=== PATIENT | male | born 1980 | race African-American/Black ===

== ENCOUNTER 2017-04-07 17:08 | Inpatient (IN) | payer OTHER ==
[~2017-04-07] VITALS: Ht 180.3 cm; Wt 76.7 kg
[2017-04-07] MEDS ORDERED: PHEN100C4 PO (17:16)
[2017-04-07] MEDS ORDERED: METO-396 PO (17:16)
[2017-04-07] MEDS ORDERED: FURO-152 PO (17:16)
[2017-04-07] MEDS ORDERED: KEPP500 PO (17:16)
[2017-04-07] MEDS ORDERED: POTA10CA42 PO (17:16)
[2017-04-07] MEDS ORDERED: LORAZEPAM 2MG/ML CPJ ONE (17:22)
[2017-04-07] MEDS ORDERED: SODIUM CHLORIDE 0.9% 1,000 ML IV ONE (17:34)
[2017-04-07] MEDS ORDERED: LEVETIRACETAM 500MG PREMIX 100 ML IV ONE (17:45)
[2017-04-07] MEDS ORDERED: LORAZEPAM 2MG/ML CPJ IV ONE (17:45)
[2017-04-07] MEDS ORDERED: FOLIC ACID 1 MG, THIAMINE HCL 100 MG, MVI, ADULT NO.1 10 ML in DEXTROSE 5% WATER 1,000 ML IV ONE ×4 (17:45)
[2017-04-07 18:06] LABS: INR 1.2; PROTHROMBIN TIME 12.8 sec (9.4-11.6)
[2017-04-07 18:07] LABS: BASOPHILS % 1.2 % (0.0-2.0); EOSINOPHILS % 1.5 % (0.0-5.0); HEMATOCRIT. 31.9 % (42.0-52.0); HEMOGLOBIN. 10.3 g/dL (14.0-18.0); LYMPHOCYTES % 26.1 % (20.0-50.0); MEAN CORPUSCULAR HEMOGLOBIN 29.8 pg (28.0-32.0); MEAN PLATELET VOLUME 8.7 fl (7.4-10.4); MONOCYTES % 9.9 % (2.0-8.0); NEUTROPHILS % 61.3 % (40.0-76.0); PLATELET 80 x1000/uL (130-400); RED BLOOD CELL COUNT 3.47 mill/uL (4.7-6.1); RED CELL DISTRIBUTION WIDTH 15.7 % (11.6-14.6)
[2017-04-07 18:12] LABS: CARBON DIOXIDE 20 mEq/L (21-32); CHLORIDE 95 mEq/L (98-107); ETHANOL BLOOD < 10 mg/dL
[2017-04-07 18:14] LABS: CREATINE KINASE 135 IU/L (39-308); TROPONIN I < 0.02 ng/mL (0.00-0.04)
[2017-04-07 18:16] LABS: CARBAMAZEPINE < 0.5 ug/mL (4-12); PHENOBARBITAL < 2.1 ug/mL (15.0-40.0)
[2017-04-07] MEDS ORDERED: ONDANSETRON HCL 4MG/2ML VIAL IV PRN (21:45)
[2017-04-07] MEDS ORDERED: DEXT 5%/0.45% NACL KCL 20MEQ/L 1,000 ML IV SCH (21:45)
[2017-04-07] MEDS ORDERED: MAGNESIUM/ALUMINUM HYDROXIDE/SIMETHICONE 30ML UDC PO PRN (21:45)
[2017-04-07 21:52] LABS: CLARITY URINE CLEAR (CLEAR); COLOR URINE YELLOW (YELLOW); GLUCOSE URINE 2+ (NEGATIVE); KETONES URINE TRACE (NEGATIVE); LEUKOCYTE ESTERASE URINE NEGATIVE (NEGATIVE); NITRITE URINE NEGATIVE (NEGATIVE); OCCULT BLOOD URINE 3+ (NEGATIVE); PROTEIN URINE TRACE (NEGATIVE); SPECIFIC GRAVITY URINE 1.017 (1.005-1.030)
[2017-04-07 22:03] LABS: *AMPHETAMINES SCREEN URINE NEGATIVE (NEGATIVE); *BARBITURATES SCREEN URINE NEGATIVE (NEGATIVE); *BENZODIAZEPINES SCREEN URINE NEGATIVE (NEGATIVE); *COCAINE SCREEN URINE NEGATIVE (NEGATIVE); CANNABINOID URINE SCREEN NEGATIVE (NEGATIVE); METHADONE URINE SCREEN NEGATIVE (NEGATIVE); OPIATES URINE SCREEN NEGATIVE (NEGATIVE); PHENCYCLIDINE URINE SCREEN NEGATIVE (NEGATIVE)
[2017-04-08] VITALS (24 sets, daily range): BP systolic 72–161; BP diastolic 35–114
[2017-04-08] MEDS ORDERED: THIA500T PO (03:33)
[2017-04-08] MEDS ORDERED: MULT-1146 PO (03:33)
[2017-04-08] MEDS ORDERED: CALC-1042 PO (03:33)
[2017-04-08] MEDS ORDERED: FOLI-43 PO (03:33)
[2017-04-08] MEDS ORDERED: OMEP20TA15 PO (03:33)
[2017-04-08] MEDS ORDERED: HYDR-523 PO (03:33)
[2017-04-08] MEDS: SODIUM CHLORIDE 0.9% 1,000 ML IV SCH ×2 (04:51→19:03)
[2017-04-08] MEDS: ACETAMINOPHEN 325MG TABLET PO PRN (05:59)
[2017-04-08] MEDS ORDERED: LEVETIRACETAM 500 MG in SODIUM CHLORIDE 0.9% 100 ML IV SCH (06:00)
[2017-04-08 07:31] LABS: BASOPHILS % 0.4 % (0.0-2.0); EOSINOPHILS % 0.1 % (0.0-5.0); HEMATOCRIT. 30.8 % (42.0-52.0); HEMOGLOBIN. 10.3 g/dL (14.0-18.0); LYMPHOCYTES % 10.2 % (20.0-50.0); MEAN CORPUSCULAR HEMOGLOBIN 30.3 pg (28.0-32.0); MEAN CORPUSCULAR VOLUME 90.2 fL (80.0-94.0); MEAN PLATELET VOLUME 9.4 fl (7.4-10.4); MONOCYTES % 7.3 % (2.0-8.0); PLATELET 75 x1000/uL (130-400); RED BLOOD CELL COUNT 3.41 mill/uL (4.7-6.1); RED CELL DISTRIBUTION WIDTH 15.5 % (11.6-14.6)
[2017-04-08 07:37] LABS: CARBON DIOXIDE 29 mEq/L (21-32); CHLORIDE 92 mEq/L (98-107)
[2017-04-08] MEDS: THIAMINE HCL 100 MG in SODIUM CHLORIDE 0.9% 49 ML IV SCH (08:21)
[2017-04-08] MEDS ORDERED: MAGNESIUM 4 G PREMIX 100 ML IV SCH (09:00)
[2017-04-08] MEDS ORDERED: MVI, ADULT NO.1 10 ML, FOLIC ACID 1 MG, THIAMINE HCL 100 MG in SODIUM CHLORIDE 0.9% 1,0... IV NR ×4 (10:00)
[2017-04-08] MEDS ORDERED: SUCCINYLCHOLINE CHLORIDE 200MG/10ML VIAL IV ONE (11:00)
[2017-04-08] MEDS ORDERED: ETOMIDATE 2MG/ML 10ML VIAL IV ONE (11:00)
[2017-04-08] MEDS ORDERED: EPINEPHRINE 0.1MG/ML (1:10,000) 10ML SYR ONE (11:00)
[2017-04-08] MEDS ORDERED: LIDOCAINE HCL 1% 20ML VIAL (Pyxis) INJ ONE (11:28)
[2017-04-08] MEDS ORDERED: SODIUM BICARBONATE 4% (2.4MEQ) 5ML VIAL IV ONE (11:28)
[2017-04-08] MEDS: LORAZEPAM 2MG/ML CPJ IV PRN ×2 (12:53→20:46)
[2017-04-08] MEDS: DIPHENHYDRAMINE 50MG/ML VIAL IV PRN ×2 (13:05→13:34)
[2017-04-08] MEDS: PROPOFOL 10MG/ML 100ML 100 ML IV SCH ×3 (13:08→22:07)
[2017-04-08] MEDS ORDERED: POTASSIUM CHLORIDE INJ 40 MEQ in DEXT 5% WATER 250 ML IV NR (13:30)
[2017-04-08 13:58] LABS: BG CARBOXYHEMOGLOBIN 0.3 % (0.5-1.5); BG DEOXYHEMOGLOBIN 1.6 % (0.0-5.0); BG FRACTION INSPIRED OXYGEN 100; BG HCO3 ACT 21.5 mmol/L (22.0-26.0); BG METHEMOGLOBIN 0.4 % (0.0-1.5); BG OXYGEN SATURATION 98.4 % (92.0-98.5); BG OXYHEMOGLOBIN 97.7 % (94.0-97.0); BG PCO2 32.6 mmHg (35.0-45.0); BG PH 7.438 (7.350-7.450); BG SAMPLE SITE LEFT RADIAL; BG TIDAL VOLUME(mL) 500 mL; BG TOTAL HEMOGLOBIN 10.8 g/dL (12.0-18.0); BG VENT MODE VENT - A/C; BG VENT RATE 12 set
[2017-04-08] MEDS ORDERED: SODIUM CHLORIDE 0.9% 250 ML IV ONE (14:00)
[2017-04-08] MEDS ORDERED: LORAZEPAM 2MG/ML CPJ IV PRN (16:45)
[2017-04-08] MEDS: LEVETIRACETAM 500 MG in SODIUM CHLORIDE 0.9% 100 ML IV SCH (18:50)
[2017-04-08] MEDS: CEFTRIAXONE 1 G PREMIX 50 ML IV SCH (18:50)
[2017-04-08 19:31] LABS: CARBON DIOXIDE 26 mEq/L (21-32); CHLORIDE 99 mEq/L (98-107)
[2017-04-08 20:04] LABS: TROPONIN I 0.75 ng/mL (0.00-0.04)
[2017-04-08] MEDS: PANTOPRAZOLE SODIUM 40 MG/VIAL IV SCH (21:11)
[2017-04-08 21:56] LABS: HEMOGLOBIN 7.7 g/dL (14.0-18.0); MEAN CORPUSCULAR HEMOGLOBIN 30.8 pg (28.0-32.0); MEAN CORPUSCULAR VOLUME 91.9 fL (80.0-94.0); PLATELET 53 x1000/uL (130-400); RED CELL DISTRIBUTION WIDTH 15.9 % (11.6-14.6)
[2017-04-09] VITALS (71 sets, daily range): BP systolic 86–175; BP diastolic 58–104
[2017-04-09] MEDS: PROPOFOL 10MG/ML 100ML 100 ML IV SCH ×2 (02:32→07:55)
[2017-04-09 06:48] LABS: CARBON DIOXIDE 22 mEq/L (21-32); CHLORIDE 93 mEq/L (98-107); PHOSPHORUS 1.5 mg/dL (2.5-4.9); TROPONIN I 0.31 ng/mL (0.00-0.04)
[2017-04-09] MEDS: LEVETIRACETAM 500 MG in SODIUM CHLORIDE 0.9% 100 ML IV SCH ×2 (06:51→18:24)
[2017-04-09] MEDS: SODIUM CHLORIDE 0.9% 1,000 ML IV SCH ×2 (06:51→22:26)
[2017-04-09 08:37] LABS: BG BASE EXCESS 0.3 mmol/L (-2.0-2.0); BG CARBOXYHEMOGLOBIN 0.4 % (0.5-1.5); BG DEOXYHEMOGLOBIN 0.5 % (0.0-5.0); BG FRACTION INSPIRED OXYGEN 80; BG HCO3 ACT 22.5 mmol/L (22.0-26.0); BG METHEMOGLOBIN 0.6 % (0.0-1.5); BG OXYGEN SATURATION 99.5 % (92.0-98.5); BG OXYHEMOGLOBIN 98.5 % (94.0-97.0); BG PH 7.538 (7.350-7.450); BG PO2 277.5 mmHg (75.0-100.0); BG SAMPLE SITE RIGHT RADIAL; BG TIDAL VOLUME(mL) 500 mL; BG TOTAL HEMOGLOBIN 8.4 g/dL (12.0-18.0); BG VENT MODE VENT - A/C; BG VENT RATE 12 set
[2017-04-09 09:07] LABS: HEMATOCRIT. 21.6 % (42.0-52.0); MEAN CORPUSCULAR VOLUME 90.4 fL (80.0-94.0); MEAN PLATELET VOLUME 10.7 fl (7.4-10.4); RED BLOOD CELL COUNT 2.39 mill/uL (4.7-6.1); RED CELL DISTRIBUTION WIDTH 16.3 % (11.6-14.6)
[2017-04-09 09:08] LABS: MEAN CORPUSCULAR HEMOGLOBIN 29.3 pg (28.0-32.0)
[2017-04-09 09:11] LABS: PLATELET 50 x1000/uL (130-400)
[2017-04-09] MEDS: PANTOPRAZOLE SODIUM 40 MG/VIAL IV SCH ×2 (09:27→20:53)
[2017-04-09 09:50] LABS: PLATELET ESTIMATE MARKEDLY DECREASED
[2017-04-09] MEDS ORDERED: POTASSIUM PHOS M BASIC D BASIC IV SCH (10:00)
[2017-04-09] MEDS ORDERED: WATER IV SCH (10:00)
[2017-04-09] MEDS ORDERED: MAGNESIUM 2 G PREMIX 50 ML IV SCH (10:00)
[2017-04-09] MEDS ORDERED: POTASSIUM CHLORIDE INJ 40 MEQ in DEXT 5% WATER 250 ML IV SCH (10:00)
[2017-04-09] MEDS ORDERED: DEXT 5% IV SCH (10:00)
[2017-04-09] MEDS: THIAMINE HCL 100 MG in SODIUM CHLORIDE 0.9% 49 ML IV SCH (10:21)
[2017-04-09] MEDS: MIDAZOLAM HCL 50 MG in DEXTROSE 5% WATER 40 ML IV PRN ×2 (11:55→17:05)
[2017-04-09] MEDS ORDERED: FENTANYL CITRATE/PF 500 MCG in SODIUM CHLORIDE 0.9% 40 ML IV PRN (12:45)
[2017-04-09] MEDS ORDERED: MORPHINE SULFATE 4 MG/ML CPJ (NOT FOR IM USE) IV PRN (13:30)
[2017-04-09] MEDS: CEFTRIAXONE 1 G PREMIX 50 ML IV SCH (18:15)
[2017-04-09] MEDS: MIDAZOLAM HCL 100 MG in DEXT 5% WATER 80 ML IV PRN (20:39)
[2017-04-09 23:31] LABS: HEMATOCRIT 32.6 % (42.0-52.0); HEMOGLOBIN 10.4 g/dL (14.0-18.0); MEAN CORPUSCULAR HEMOGLOBIN 28.8 pg (28.0-32.0); MEAN CORPUSCULAR VOLUME 90.4 fL (80.0-94.0); PLATELET 52 x1000/uL (130-400); RED BLOOD CELL COUNT 3.61 mill/uL (4.7-6.1); RED CELL DISTRIBUTION WIDTH 16.4 % (11.6-14.6)
[2017-04-10] VITALS (65 sets, daily range): BP systolic 94–151; BP diastolic 65–110
[2017-04-10] MEDS: MORPHINE SULFATE 4 MG/ML CPJ (NOT FOR IM USE) IV PRN ×4 (00:42→22:47)
[2017-04-10] MEDS: MIDAZOLAM HCL 100 MG in DEXT 5% WATER 80 ML IV PRN ×2 (05:10→13:46)
[2017-04-10] MEDS: LEVETIRACETAM 500 MG in SODIUM CHLORIDE 0.9% 100 ML IV SCH ×2 (05:26→17:25)
[2017-04-10 06:14] LABS: INR 1.1; PARTIAL THROMBOPLASTIN TIME 30.5 sec (23.4-31.0); PROTHROMBIN TIME 11.3 sec (9.4-11.6)
[2017-04-10 07:36] LABS: BG BASE EXCESS -2.1 mmol/L (-2.0-2.0); BG CARBOXYHEMOGLOBIN 0.3 % (0.5-1.5); BG DEOXYHEMOGLOBIN 4.4 % (0.0-5.0); BG HCO3 ACT 21.1 mmol/L (22.0-26.0); BG METHEMOGLOBIN 0.1 % (0.0-1.5); BG OXYGEN SATURATION 95.6 % (92.0-98.5); BG OXYHEMOGLOBIN 95.2 % (94.0-97.0); BG PCO2 30.6 mmHg (35.0-45.0); BG PH 7.457 (7.350-7.450); BG PO2 79.5 mmHg (75.0-100.0); BG SAMPLE SITE RIGHT BRACHIAL; BG TIDAL VOLUME(mL) 500 mL; BG TOTAL HEMOGLOBIN 9.9 g/dL (12.0-18.0); BG VENT MODE VENT - A/C; BG VENT RATE 12 set
[2017-04-10] MEDS: PANTOPRAZOLE SODIUM 40 MG/VIAL IV SCH ×2 (08:10→21:26)
[2017-04-10] MEDS ORDERED: FENTANYL CITRATE/PF 500 MCG in SODIUM CHLORIDE 0.9% 40 ML IV PRN (08:30)
[2017-04-10 08:54] LABS: BASOPHILS % 0.3 % (0.0-2.0); EOSINOPHILS % 1.4 % (0.0-5.0); HEMATOCRIT. 25.9 % (42.0-52.0); HEMOGLOBIN. 8.9 g/dL (14.0-18.0); LYMPHOCYTES % 10.4 % (20.0-50.0); MEAN CORPUSCULAR HEMOGLOBIN 30.6 pg (28.0-32.0); MEAN CORPUSCULAR VOLUME 89.3 fL (80.0-94.0); MEAN PLATELET VOLUME 10.6 fl (7.4-10.4); NEUTROPHILS % 80.9 % (40.0-76.0); PLATELET 61 x1000/uL (130-400); RED CELL DISTRIBUTION WIDTH 16.4 % (11.6-14.6)
[2017-04-10 08:57] LABS: CARBON DIOXIDE 24 mEq/L (21-32); CHLORIDE 104 mEq/L (98-107); PHOSPHORUS 2.7 mg/dL (2.5-4.9)
[2017-04-10] MEDS: FOLIC ACID 1 MG, THIAMINE HCL 100 MG, MVI, ADULT NO.1 10 ML in DEXT 5%/0.9% NACL 1,000 ML IV SCH ×4 (10:03)
[2017-04-10 15:09] LABS: BG BASE EXCESS -0.3 mmol/L (-2.0-2.0); BG CARBOXYHEMOGLOBIN 0.1 % (0.5-1.5); BG CPAP (cmH2O) 0 cm(H2O); BG DEOXYHEMOGLOBIN 2.2 % (0.0-5.0); BG HCO3 ACT 23.2 mmol/L (22.0-26.0); BG OXYGEN SATURATION 97.8 % (92.0-98.5); BG OXYHEMOGLOBIN 97.7 % (94.0-97.0); BG PCO2 33.4 mmHg (35.0-45.0); BG PH 7.459 (7.350-7.450); BG PO2 112.3 mmHg (75.0-100.0); BG SAMPLE SITE RIGHT RADIAL; BG TOTAL HEMOGLOBIN 9.9 g/dL (12.0-18.0); BG VENT MODE MASK - CPAP
[2017-04-10] MEDS ORDERED: MAGNESIUM 2 G PREMIX 50 ML IV SCH (17:00)
[2017-04-10] MEDS ORDERED: POTASSIUM CHLORIDE INJ 40 MEQ in DEXT 5% WATER 250 ML IV SCH (17:30)
[2017-04-10] MEDS: DEXT 5%/0.9% NACL 1,000 ML IV SCH (18:12)
[2017-04-10] MEDS: CEFTRIAXONE 1 G PREMIX 50 ML IV SCH (18:12)
[2017-04-11] VITALS (68 sets, daily range): BP systolic 119–170; BP diastolic 54–111
[2017-04-11] MEDS: DEXT 5%/0.9% NACL 1,000 ML IV SCH ×3 (04:38→22:44)
[2017-04-11] MEDS: LEVETIRACETAM 500 MG in SODIUM CHLORIDE 0.9% 100 ML IV SCH ×2 (05:11→18:08)
[2017-04-11 05:52] LABS: HEMATOCRIT. 30.3 % (42.0-52.0); HEMOGLOBIN. 10.2 g/dL (14.0-18.0); MEAN CORPUSCULAR VOLUME 91.8 fL (80.0-94.0); RED CELL DISTRIBUTION WIDTH 16.7 % (11.6-14.6)
[2017-04-11 08:46] LABS: BG BASE EXCESS 0.1 mmol/L (-2.0-2.0); BG CARBOXYHEMOGLOBIN 0.1 % (0.5-1.5); BG DEOXYHEMOGLOBIN 3.5 % (0.0-5.0); BG FRACTION INSPIRED OXYGEN 32; BG HCO3 ACT 24.3 mmol/L (22.0-26.0); BG METHEMOGLOBIN 0.3 % (0.0-1.5); BG OXYGEN SATURATION 96.5 % (92.0-98.5); BG OXYHEMOGLOBIN 96.1 % (94.0-97.0); BG PCO2 37.7 mmHg (35.0-45.0); BG PH 7.428 (7.350-7.450); BG PO2 88.8 mmHg (75.0-100.0); BG SAMPLE SITE LEFT RADIAL; BG VENT MODE NASAL CANNULA
[2017-04-11] MEDS: MORPHINE SULFATE 4 MG/ML CPJ (NOT FOR IM USE) IV PRN ×4 (09:11→21:47)
[2017-04-11] MEDS: PANTOPRAZOLE SODIUM 40 MG/VIAL IV SCH ×2 (09:11→21:19)
[2017-04-11] MEDS: FOLIC ACID 1 MG, THIAMINE HCL 100 MG, MVI, ADULT NO.1 10 ML in DEXT 5%/0.9% NACL 1,000 ML IV SCH ×4 (10:26)
[2017-04-11] MEDS ORDERED: MAGNESIUM 2 G PREMIX 50 ML IV SCH (12:00)
[2017-04-11] MEDS ORDERED: POTASSIUM CHLORIDE INJ 40 MEQ in DEXT 5% WATER 250 ML IV SCH (12:00)
[2017-04-11] MEDS ORDERED: SIMETHICONE 40 MG/0.6 ML 30ML ONE (12:42)
[2017-04-11] MEDS ORDERED: SODIUM CHLORIDE 0.9% 10ML VIAL ONE (12:42)
[2017-04-11 14:01] LABS: PLATELET 86 x1000/uL (130-400)
[2017-04-11] MEDS: CEFTRIAXONE 1 G PREMIX 50 ML IV SCH (18:18)
[2017-04-11] MEDS ORDERED: FENTANYL CITRATE/PF 50MCG/ML 2ML VIAL ONE (18:21)
[2017-04-11] MEDS ORDERED: DIPHENHYDRAMINE 50MG/ML VIAL ONE (18:21)
[2017-04-11] MEDS ORDERED: MIDAZOLAM HCL 5 MG/5 ML VIAL ONE (18:22)
[2017-04-11 20:34] LABS: CHLORIDE 107 mEq/L (98-107)
[2017-04-11 20:39] LABS: CARBON DIOXIDE 27 mEq/L (21-32)
[2017-04-11] MEDS: SUCRALFATE 1 G/10 ML UDC PO SCH (21:19)
[2017-04-11] MEDS ORDERED: MAGNESIUM 2 G PREMIX 50 ML IV NR (22:30)
[2017-04-12] VITALS (47 sets, daily range): BP systolic 123–168; BP diastolic 82–112
[2017-04-12] MEDS: LEVETIRACETAM 500 MG in SODIUM CHLORIDE 0.9% 100 ML IV SCH ×2 (05:25→18:30)
[2017-04-12] MEDS: MORPHINE SULFATE 4 MG/ML CPJ (NOT FOR IM USE) IV PRN ×4 (05:47→20:20)
[2017-04-12] MEDS: SUCRALFATE 1 G/10 ML UDC PO SCH ×4 (05:47→20:20)
[2017-04-12 07:03] LABS: CARBON DIOXIDE 25 mEq/L (21-32); CHLORIDE 102 mEq/L (98-107); PHOSPHORUS 1.7 mg/dL (2.5-4.9)
[2017-04-12] MEDS: DEXT 5%/0.9% NACL 1,000 ML IV SCH (09:23)
[2017-04-12 09:43] LABS: HEMATOCRIT. 26.6 % (42.0-52.0); HEMOGLOBIN. 9.1 g/dL (14.0-18.0); MEAN CORPUSCULAR HEMOGLOBIN 30.8 pg (28.0-32.0); MEAN PLATELET VOLUME 8.5 fl (7.4-10.4); PLATELET 136 x1000/uL (130-400); RED BLOOD CELL COUNT 2.96 mill/uL (4.7-6.1)
[2017-04-12] MEDS ORDERED: METOPROLOL TARTRATE 50MG TABLET PO SCH (10:00)
[2017-04-12] MEDS ORDERED: POTASSIUM CHLORIDE 20MEQ TABLET SR PO SCH (10:20)
[2017-04-12] MEDS ORDERED: POTASSIUM PHOS,M-BASIC-D-BASIC 15 MMOL in DEXT 5% WATER 245 ML IV NR (11:30)
[2017-04-12] MEDS ORDERED: MAGNESIUM 2 G PREMIX 50 ML IV NR (11:30)
[2017-04-12] MEDS: THIAMINE HCL 100MG TABLET PO SCH (12:32)
[2017-04-12] MEDS: MULTIVITAMINS,THER W-MINERALS TABLET PO SCH (12:32)
[2017-04-12] MEDS: PANTOPRAZOLE SODIUM 40 MG/VIAL IV SCH ×2 (12:32→20:21)
[2017-04-12] MEDS: CLONIDINE 0.1MG TABLET PO PRN ×2 (12:33→21:54)
[2017-04-12] MEDS: CHLORDIAZEPOXIDE 5 MG CAPSULE PO SCH ×2 (15:01→22:19)
[2017-04-12 16:14] LABS: PLATELET ESTIMATE NORMAL
[2017-04-12] MEDS: CEFTRIAXONE 1 G PREMIX 50 ML IV SCH (18:30)
[2017-04-12] MEDS: METOPROLOL TARTRATE 100MG TABLET PO SCH (20:42)
[2017-04-13] VITALS: BP 142/89
[2017-04-13] MEDS: MORPHINE SULFATE 4 MG/ML CPJ (NOT FOR IM USE) IV PRN ×5 (00:55→22:33)
[2017-04-13 04:00] VITALS: BP 133/90
[2017-04-13] MEDS: LEVETIRACETAM 500 MG in SODIUM CHLORIDE 0.9% 100 ML IV SCH ×2 (05:41→18:37)
[2017-04-13] MEDS: CHLORDIAZEPOXIDE 5 MG CAPSULE PO SCH ×3 (05:41→22:25)
[2017-04-13] MEDS: SUCRALFATE 1 G/10 ML UDC PO SCH ×4 (05:41→20:20)
[2017-04-13 06:47] LABS: HEMATOCRIT. 24.1 % (42.0-52.0); HEMOGLOBIN. 8.1 g/dL (14.0-18.0); MEAN CORPUSCULAR HEMOGLOBIN 30.5 pg (28.0-32.0); MEAN CORPUSCULAR VOLUME 90.7 fL (80.0-94.0); MEAN PLATELET VOLUME 8.6 fl (7.4-10.4); PLATELET 171 x1000/uL (130-400); RED BLOOD CELL COUNT 2.65 mill/uL (4.7-6.1)
[2017-04-13] MEDS: ACETAMINOPHEN 325MG TABLET PO PRN (06:53)
[2017-04-13 07:53] LABS: CARBON DIOXIDE 28 mEq/L (21-32); CHLORIDE 98 mEq/L (98-107); PHOSPHORUS 2.8 mg/dL (2.5-4.9)
[2017-04-13 08:00] VITALS: BP 122/93
[2017-04-13] MEDS: THIAMINE HCL 100MG TABLET PO SCH (08:36)
[2017-04-13] MEDS: FOLIC ACID 1MG TABLET PO SCH (08:36)
[2017-04-13] MEDS: MULTIVITAMINS,THER W-MINERALS TABLET PO SCH (08:36)
[2017-04-13] MEDS: METOPROLOL TARTRATE 100MG TABLET PO SCH ×2 (08:37→20:20)
[2017-04-13] MEDS: PANTOPRAZOLE SODIUM 40 MG/VIAL IV SCH ×2 (08:37→20:20)
[2017-04-13 12:21] VITALS: BP 119/83
[2017-04-13] MEDS ORDERED: POTASSIUM CHLORIDE 20MEQ TABLET SR PO SCH ×3 (12:30→22:30)
[2017-04-13] MEDS ORDERED: MAGNESIUM 4 G PREMIX 100 ML IV SCH (14:00)
[2017-04-13 16:00] VITALS: BP 132/93
[2017-04-13 16:11] LABS: ATYPICAL LYMPHOCYTES 1
[2017-04-13 16:14] LABS: PLATELET ESTIMATE NORMAL
[2017-04-13 20:00] VITALS: BP 157/102
[2017-04-13] MEDS: CEFTRIAXONE 1 G PREMIX 50 ML IV SCH (20:20)
[2017-04-14] VITALS: BP 143/93
[2017-04-14] MEDS: MORPHINE SULFATE 4 MG/ML CPJ (NOT FOR IM USE) IV PRN (02:56)
[2017-04-14 04:00] VITALS: BP 142/96
[2017-04-14] MEDS: ACETAMINOPHEN 325MG TABLET PO PRN (04:27)
[2017-04-14] MEDS: CHLORDIAZEPOXIDE 5 MG CAPSULE PO SCH ×3 (05:27→21:35)
[2017-04-14] MEDS: SUCRALFATE 1 G/10 ML UDC PO SCH ×4 (06:12→21:34)
[2017-04-14 07:11] LABS: HEMATOCRIT 24.8 % (42.0-52.0); HEMOGLOBIN 8.4 g/dL (14.0-18.0); MEAN CORPUSCULAR HEMOGLOBIN 30.8 pg (28.0-32.0); PLATELET 234 x1000/uL (130-400); RED BLOOD CELL COUNT 2.73 mill/uL (4.7-6.1)
[2017-04-14 08:00] VITALS: BP 146/85
[2017-04-14] MEDS: LEVETIRACETAM 500MG/5ML CUP PO SCH ×2 (09:27→21:34)
[2017-04-14] MEDS: FOLIC ACID 1MG TABLET PO SCH (09:28)
[2017-04-14] MEDS: METOPROLOL TARTRATE 100MG TABLET PO SCH ×2 (09:28→21:35)
[2017-04-14] MEDS: THIAMINE HCL 100MG TABLET PO SCH (09:28)
[2017-04-14] MEDS: MULTIVITAMINS,THER W-MINERALS TABLET PO SCH (09:28)
[2017-04-14] MEDS: PANTOPRAZOLE SODIUM 40 MG/VIAL IV SCH ×2 (10:36→21:34)
[2017-04-14] MEDS ORDERED: TRAMADOL 50MG TABLET PO PRN (11:00)
[2017-04-14 12:00] VITALS: BP 153/103
[2017-04-14] MEDS ORDERED: MAGNESIUM 4 G PREMIX 100 ML IV NR (12:30)
[2017-04-14 16:00] VITALS: BP 143/95
[2017-04-14 16:53] LABS: AMMONIA 49 uMol/L (<32)
[2017-04-14] MEDS: CEFTRIAXONE 1 G PREMIX 50 ML IV SCH (18:04)
[2017-04-14 20:00] VITALS: BP 151/100
[2017-04-14] MEDS: HYDROCODONE/ACETAMINOPHEN 5/325MG TABLET PO PRN (21:36)
[2017-04-15] VITALS: BP 130/84
[2017-04-15] MEDS: HYDROCODONE/ACETAMINOPHEN 5/325MG TABLET PO PRN ×4 (01:28→20:03)
[2017-04-15 04:00] VITALS: BP 101/66
[2017-04-15] MEDS: CHLORDIAZEPOXIDE 5 MG CAPSULE PO SCH ×3 (06:07→21:58)
[2017-04-15] MEDS: SUCRALFATE 1 G/10 ML UDC PO SCH ×4 (06:08→20:51)
[2017-04-15 08:00] VITALS: BP 124/88
[2017-04-15] MEDS: THIAMINE HCL 100MG TABLET PO SCH (09:06)
[2017-04-15] MEDS: MULTIVITAMINS,THER W-MINERALS TABLET PO SCH (09:06)
[2017-04-15] MEDS: FOLIC ACID 1MG TABLET PO SCH (09:06)
[2017-04-15] MEDS: LEVETIRACETAM 500MG/5ML CUP PO SCH ×2 (09:07→20:51)
[2017-04-15] MEDS: PANTOPRAZOLE SODIUM 40 MG/VIAL IV SCH ×2 (09:07→20:50)
[2017-04-15] MEDS: METOPROLOL TARTRATE 100MG TABLET PO SCH ×2 (09:07→20:51)
[2017-04-15] MEDS ORDERED: POTASSIUM CHLORIDE 20MEQ TABLET SR PO NR ×2 (09:45→13:45)
[2017-04-15] MEDS: MAGNESIUM 4 G PREMIX 100 ML IV SCH ×2 (11:11→16:25)
[2017-04-15 12:00] VITALS: BP 127/84
[2017-04-15 16:00] VITALS: BP 142/98
[2017-04-15] MEDS: CEFTRIAXONE 1 G PREMIX 50 ML IV SCH (18:35)
[2017-04-15 20:00] VITALS: BP 141/102
[2017-04-16] VITALS: BP 139/104
[2017-04-16 04:00] VITALS: BP 151/100
[2017-04-16] MEDS: CHLORDIAZEPOXIDE 5 MG CAPSULE PO SCH ×2 (05:17→14:02)
[2017-04-16] MEDS: CLONIDINE 0.1MG TABLET PO PRN ×2 (05:42→19:34)
[2017-04-16] MEDS: SUCRALFATE 1 G/10 ML UDC PO SCH ×4 (06:27→21:27)
[2017-04-16 08:00] VITALS: BP 147/97
[2017-04-16] MEDS: LEVETIRACETAM 500MG/5ML CUP PO SCH ×2 (08:22→21:27)
[2017-04-16] MEDS: MULTIVITAMINS,THER W-MINERALS TABLET PO SCH (08:22)
[2017-04-16] MEDS: THIAMINE HCL 100MG TABLET PO SCH (08:22)
[2017-04-16] MEDS: FOLIC ACID 1MG TABLET PO SCH (08:22)
[2017-04-16] MEDS: PANTOPRAZOLE SODIUM 40 MG/VIAL IV SCH ×2 (08:23→21:27)
[2017-04-16] MEDS: METOPROLOL TARTRATE 100MG TABLET PO SCH ×2 (08:23→21:27)
[2017-04-16] MEDS: HYDROCODONE/ACETAMINOPHEN 5/325MG TABLET PO PRN (08:24)
[2017-04-16 12:00] VITALS: BP 157/103
[2017-04-16 12:32] LABS: AMMONIA 53 uMol/L (<32)
[2017-04-16] MEDS ORDERED: POTASSIUM CHLORIDE 20MEQ TABLET SR PO NR (15:00)
[2017-04-16 16:00] VITALS: BP 141/92
[2017-04-16] MEDS ORDERED: MAGNESIUM 4 G PREMIX 100 ML IV ONE (16:00)
[2017-04-16] MEDS: LACTULOSE 20G/30ML UDC PO SCH (16:34)
[2017-04-16] MEDS: AMLODIPINE 2.5MG TABLET PO SCH (17:59)
[2017-04-16] MEDS: CEFTRIAXONE 1 G PREMIX 50 ML IV SCH (18:11)
[2017-04-16 19:20] LABS: T4 FREE 1.61 ng/dL (0.76-1.46)
[2017-04-16 20:00] VITALS: BP 157/100
[2017-04-17] VITALS (7 sets, daily range): BP systolic 132–166; BP diastolic 86–107
[2017-04-17] MEDS: HYDROCODONE/ACETAMINOPHEN 5/325MG TABLET PO PRN ×2 (05:27→22:04)
[2017-04-17 07:48] LABS: AMMONIA 31 uMol/L (<32)
[2017-04-17 08:03] LABS: HEMATOCRIT. 25.1 % (42.0-52.0); HEMOGLOBIN. 8.5 g/dL (14.0-18.0); MEAN CORPUSCULAR HEMOGLOBIN 30.7 pg (28.0-32.0); MEAN CORPUSCULAR VOLUME 91.3 fL (80.0-94.0); MEAN PLATELET VOLUME 8.2 fl (7.4-10.4); PLATELET 401 x1000/uL (130-400); RED BLOOD CELL COUNT 2.75 mill/uL (4.7-6.1); RED CELL DISTRIBUTION WIDTH 16.7 % (11.6-14.6)
[2017-04-17 08:22] LABS: CARBON DIOXIDE 30 mEq/L (21-32); CHLORIDE 102 mEq/L (98-107)
[2017-04-17] MEDS: LACTULOSE 20G/30ML UDC PO SCH ×2 (08:22→16:50)
[2017-04-17] MEDS: PANTOPRAZOLE SODIUM 40 MG/VIAL IV SCH ×2 (08:22→22:04)
[2017-04-17] MEDS: LEVETIRACETAM 500MG/5ML CUP PO SCH ×2 (08:22→22:02)
[2017-04-17] MEDS: MULTIVITAMINS,THER W-MINERALS TABLET PO SCH (08:22)
[2017-04-17] MEDS: SUCRALFATE 1 G/10 ML UDC PO SCH ×4 (08:22→22:02)
[2017-04-17] MEDS: METOPROLOL TARTRATE 100MG TABLET PO SCH ×2 (08:23→22:03)
[2017-04-17] MEDS: AMLODIPINE 2.5MG TABLET PO SCH (08:23)
[2017-04-17] MEDS: THIAMINE HCL 100MG TABLET PO SCH (08:23)
[2017-04-17] MEDS: FOLIC ACID 1MG TABLET PO SCH (08:23)
[2017-04-17] MEDS ORDERED: CHLORDIAZEPOXIDE 5 MG CAPSULE PO SCH (09:00)
[2017-04-17 16:20] LABS: PLATELET ESTIMATE SLIGHTLY INCREASED
[2017-04-17] MEDS: CEFTRIAXONE 1 G PREMIX 50 ML IV SCH (16:50)
[2017-04-17] MEDS ORDERED: AMLODIPINE 2.5MG TABLET PO NR (17:45)
[2017-04-18] VITALS: BP 138/87
[2017-04-18] MEDS: HYDROCODONE/ACETAMINOPHEN 5/325MG TABLET PO PRN ×2 (02:20→08:02)
[2017-04-18 04:00] VITALS: BP 129/85
[2017-04-18] MEDS: SUCRALFATE 1 G/10 ML UDC PO SCH (06:44)
[2017-04-18] MEDS: THIAMINE HCL 100MG TABLET PO SCH (08:01)
[2017-04-18] MEDS: MULTIVITAMINS,THER W-MINERALS TABLET PO SCH (08:01)
[2017-04-18] MEDS: LEVETIRACETAM 500MG/5ML CUP PO SCH (08:01)
[2017-04-18] MEDS: FOLIC ACID 1MG TABLET PO SCH (08:01)
[2017-04-18] MEDS: LACTULOSE 20G/30ML UDC PO SCH (08:01)
[2017-04-18] MEDS: PANTOPRAZOLE SODIUM 40 MG/VIAL IV SCH (08:01)
[2017-04-18] MEDS: METOPROLOL TARTRATE 100MG TABLET PO SCH (08:02)
[2017-04-18 08:38] VITALS: BP 127/86
[2017-04-18] MEDS ORDERED: AMLODIPINE 5MG TABLET PO SCH (09:00)
== END 2017-04-18 09:03 | disposition home or self-care (01) | DRG 720 ==
LOC: ER 17:26 → 6WST 20:13 → EDBEDREQTM 20:18 → EDBEDREQ 20:18 → ENRESERV 04-08 00:53 → MICUNO 04-08 12:38 → 8WST 04-12 22:40
PROVIDERS: ADMIT Internal Medicine; ATTEND Internal Medicine
PROC: 5A1945Z Respiratory Ventilation, 24-96 Consecutive Hours (ICD-10-PCS; 2017-04-07)
PROC: 05HY33Z Insertion of Infusion Device into Upper Vein, Percutaneous Approach (ICD-10-PCS; 2017-04-08)
PROC: 30233N1 Transfusion of Nonautologous Red Blood Cells into Peripheral Vein, Percutaneous Approach (ICD-10-PCS; 2017-04-09)
PROC: 0BH17EZ Insertion of Endotracheal Airway into Trachea, Via Natural or Artificial Opening (ICD-10-PCS; 2017-04-10)
PROC: 0T9B70Z Drainage of Bladder with Drainage Device, Via Natural or Artificial Opening (ICD-10-PCS; 2017-04-10)
PROC: 0DB68ZX Excision of Stomach, Via Natural or Artificial Opening Endoscopic, Diagnostic (ICD-10-PCS; principal; 2017-04-11 15:00)
DX: A41.9 Sepsis, unspecified organism (principal); J96.00 Acute respiratory failure, unspecified whether with hypoxia or hypercapnia; I46.9 Cardiac arrest, cause unspecified; J69.0 Pneumonitis due to inhalation of food and vomit; G93.40 Encephalopathy, unspecified; K25.4 Chronic or unspecified gastric ulcer with hemorrhage; D61.818 Other pancytopenia; E87.2 Acidosis; K29.71 Gastritis, unspecified, with bleeding; I50.9 Heart failure, unspecified; F10.239 Alcohol dependence with withdrawal, unspecified; K86.1 Other chronic pancreatitis; G40.901 Epilepsy, unspecified, not intractable, with status epilepticus; E87.1 Hypo-osmolality and hyponatremia; E83.42 Hypomagnesemia; E83.39 Other disorders of phosphorus metabolism; E11.9 Type 2 diabetes mellitus without complications; E78.1 Pure hyperglyceridemia; E86.0 Dehydration; E87.6 Hypokalemia; F17.200 Nicotine dependence, unspecified, uncomplicated; K70.9 Alcoholic liver disease, unspecified; D62 Acute posthemorrhagic anemia; I11.0 Hypertensive heart disease with heart failure; K44.9 Diaphragmatic hernia without obstruction or gangrene; R74.0 Nonspecific elevation of levels of transaminase and lactic acid dehydrogenase [LDH]; D69.6 Thrombocytopenia, unspecified; R33.9 Retention of urine, unspecified; K70.30 Alcoholic cirrhosis of liver without ascites; K76.0 Fatty (change of) liver, not elsewhere classified; Z91.018 Allergy to other foods; Z88.8 Allergy status to other drugs, medicaments and biological substances; Z99.3 Dependence on wheelchair; Z83.3 Family history of diabetes mellitus; Z82.49 Family history of ischemic heart disease and other diseases of the circulatory system; Z91.14 Patient's other noncompliance with medication regimen; Z79.899 Other long term (current) drug therapy
CPT/HCPCS: 31500; 36415; 36569; 36600; 70450; 71010; 72100; 73060; 76700; 76937; 77001; 80048; 80051; 80053; 80076; 80156; 80165; 80184; 80185; 80305; 81001; 82140; 82150; 82248; 82375; 82550; 82805; 82962; 83605; 83690; 83735; 83880; 84100; 84439; 84443; 84478; 84484; 85025; 85027; 85610; 85730; 86850; 86900; 86920; 87070; 88305; 93005; 93306; 94002; 94003; 96365; 96366; 96367; 96375; 97116; 97162; 97167; 99285; A4216; A6261; C1725; C1893; C9113; G0482; J0171; J0330; J0696; J1200; J1642; J1953; J2060; J2250; J2270; J2405; J2704; J3010; J3411; J3475; J3480; J3490; J7030; J7042; J7050; J7060; J7070; P9016; A4315

== ENCOUNTER 2020-04-18 23:31 | Emergency (ER) | payer MEDICAID, OTHER ==
[~2020-04-18] VITALS: Ht 182.9 cm; Wt 77.0 kg
[~2020-04-18 23:31] MED LIST: CALC-1042 PO; FOLI-43 PO; FURO-152 PO; HYDR-523 PO; KEPP500 PO; METO-396 PO; MULT-1146 PO; OMEP20TA15 PO; PHEN100C4 PO; POTA10CA42 PO; THIA500T PO
[2020-04-19] MEDS ORDERED: HYDROCODONE/ACETAMINOPHEN 5/325MG TABLET PO ONE (03:45)
[2020-04-19 04:52] VITALS: BP 122/75
== END 2020-04-19 06:08 | disposition home or self-care (01) ==
LOC: ER 23:31
DX: M79.671 Pain in right foot (principal); Z87.828 Personal history of other (healed) physical injury and trauma; Z88.6 Allergy status to analgesic agent; Z91.018 Allergy to other foods
CPT/HCPCS: 73590; 73600; 73620; 93005; 99284; Z7610

== ENCOUNTER 2022-05-08 17:02 | Emergency (ER) | payer MEDICAID, OTHER ==
[~2022-05-08] VITALS: Ht 185.4 cm; Wt 68.0 kg
[~2022-05-08 17:02] MED LIST changes: +HYDR-4001 MT; -HYDR-523 PO; +L25 PO; +LORA-249 MT
[2022-05-08] MEDS ORDERED: LEVETIRACETAM 1000MG PREMIX 100 ML IV ONE (17:30)
[2022-05-08 18:53] LABS: BASOPHILS % 0.4 % (0.0-2.0); EOSINOPHILS % 0.9 % (0.0-5.0); HEMOGLOBIN. 11.1 g/dL (14.0-18.0); LYMPHOCYTES % 18.3 % (20.0-50.0); MEAN CORPUSCULAR HEMOGLOBIN 29.2 pg (28.0-32.0); MEAN CORPUSCULAR VOLUME 86.8 fL (80.0-94.0); MEAN PLATELET VOLUME 8.3 fl (7.4-10.4); MONOCYTES % 11.8 % (2.0-8.0); NEUTROPHILS % 68.6 % (40.0-76.0); PLATELET 210 x1000/uL (130-400); RED CELL DISTRIBUTION WIDTH 14.4 % (11.6-14.6)
[2022-05-08 18:59] LABS: CHLORIDE 91 mEq/L (98-107)
[2022-05-08 19:09] LABS: ETHANOL BLOOD < 10 mg/dL
[2022-05-08] MEDS ORDERED: POTASSIUM CHLORIDE 20MEQ TABLET SR PO ONE (20:00)
[2022-05-08] MEDS ORDERED: MAGNESIUM OXIDE 400MG TABLET PO SCH (20:00)
[2022-05-08 20:07] VITALS: BP 129/84
== END 2022-05-08 21:27 | disposition home or self-care (01) ==
LOC: ER 17:02
DX: G40.909 Epilepsy, unspecified, not intractable, without status epilepticus (principal); E87.6 Hypokalemia; F41.9 Anxiety disorder, unspecified; I50.9 Heart failure, unspecified; K76.9 Liver disease, unspecified; F17.210 Nicotine dependence, cigarettes, uncomplicated; Z86.73 Personal history of transient ischemic attack (TIA), and cerebral infarction without residual deficits; F10.10 Alcohol abuse, uncomplicated; Y90.0 Blood alcohol level of less than 20 mg/100 ml; Z87.828 Personal history of other (healed) physical injury and trauma; Z91.018 Allergy to other foods; Z88.8 Allergy status to other drugs, medicaments and biological substances
CPT/HCPCS: 36415; 70450; 80053; 80320; 82962; 83690; 85025; 93005; 96365; 96366; 99285; J1953; G0480

== ENCOUNTER 2022-05-30 05:44 | Emergency (ER) | payer MEDICAID ==
[~2022-05-30] VITALS: Ht 180.3 cm; Wt 69.0 kg
[2022-05-30] MEDS ORDERED: LEVETIRACETAM 500MG/5ML CUP PO NR (06:45)
[2022-05-30 06:59] LABS: BASOPHILS % 1.3 % (0.0-2.0); EOSINOPHILS % 5.4 % (0.0-5.0); HEMATOCRIT. 31.9 % (42.0-52.0); HEMOGLOBIN. 10.7 g/dL (14.0-18.0); LYMPHOCYTES % 29.7 % (20.0-50.0); MEAN CORPUSCULAR HEMOGLOBIN 29.3 pg (28.0-32.0); MEAN CORPUSCULAR VOLUME 87.3 fL (80.0-94.0); MEAN PLATELET VOLUME 7.9 fl (7.4-10.4); MONOCYTES % 10.8 % (2.0-8.0); NEUTROPHILS % 52.8 % (40.0-76.0); PLATELET 284 x1000/uL (130-400); RED BLOOD CELL COUNT 3.66 mill/uL (4.7-6.1); RED CELL DISTRIBUTION WIDTH 14.6 % (11.6-14.6)
[2022-05-30 07:10] LABS: CHLORIDE 102 mEq/L (98-107)
[2022-05-30 07:15] LABS: CLARITY URINE CLEAR (CLEAR); COLOR URINE YELLOW (YELLOW); KETONES URINE NEGATIVE (NEGATIVE); LEUKOCYTE ESTERASE URINE NEGATIVE (NEGATIVE); NITRITE URINE NEGATIVE (NEGATIVE); OCCULT BLOOD URINE NEGATIVE (NEGATIVE); PROTEIN URINE NEGATIVE (NEGATIVE); SPECIFIC GRAVITY URINE 1.025 (1.005-1.030); UROBILINOGEN URINE 0.2 E.U./dL (0.2-1.0)
[2022-05-30 07:20] LABS: CREATINE KINASE 99 IU/L (39-308); ETHANOL BLOOD < 10 mg/dL
[2022-05-30 07:35] LABS: BG BASE EXCESS -1.3 mmol/L (-2.0-2.0); BG CARBOXYHEMOGLOBIN 0.9 % (0.5-1.5); BG DEOXYHEMOGLOBIN 2.8 % (0.0-5.0); BG HCO3 ACT 23.4 mmol/L (22.0-26.0); BG METHEMOGLOBIN 0.2 % (0.0-1.5); BG OXYGEN SATURATION 97.2 % (92.0-98.5); BG OXYHEMOGLOBIN 96.1 % (94.0-97.0); BG PCO2 39.4 mmHg (35.0-45.0); BG PH 7.392 (7.350-7.450); BG PO2 94.6 mmHg (75.0-100.0); BG SAMPLE SITE RIGHT RADIAL; BG TOTAL HEMOGLOBIN 10.6 g/dL (12.0-18.0); BG VENT MODE ROOM AIR
[2022-05-30] MEDS ORDERED: HYDROCODONE/ACETAMINOPHEN 5/325MG TABLET PO ONE (08:45)
[2022-05-30 09:35] LABS: *AMPHETAMINES SCREEN URINE NEGATIVE (NEGATIVE); *BARBITURATES SCREEN URINE NEGATIVE (NEGATIVE); *BENZODIAZEPINES SCREEN URINE NEGATIVE (NEGATIVE); *COCAINE SCREEN URINE NEGATIVE (NEGATIVE); CANNABINOID URINE SCREEN NEGATIVE (NEGATIVE); METHADONE URINE SCREEN NEGATIVE (NEGATIVE); OPIATES URINE SCREEN NEGATIVE (NEGATIVE); PHENCYCLIDINE URINE SCREEN NEGATIVE (NEGATIVE)
[2022-05-30 10:40] VITALS: BP 126/98
== END 2022-05-30 11:00 | disposition home or self-care (01) ==
LOC: ER 05:44
DX: R56.9 Unspecified convulsions (principal); D64.9 Anemia, unspecified; I50.9 Heart failure, unspecified; Z91.018 Allergy to other foods; Z98.890 Other specified postprocedural states; Z79.899 Other long term (current) drug therapy; Z86.73 Personal history of transient ischemic attack (TIA), and cerebral infarction without residual deficits
CPT/HCPCS: 36415; 36600; 71045; 80053; 80305; 80320; 81003; 82140; 82375; 82550; 82805; 83605; 83880; 84484; 85025; 93005; 99285; G0480

== ENCOUNTER 2022-10-19 18:29 | Inpatient (IN) | payer MEDICAID, OTHER ==
[~2022-10-19] VITALS: Ht 180.3 cm; Wt 70.8 kg
[~2022-10-19 18:29] MED LIST changes: -CALC-1042 PO; -HYDR-4001 MT; -LORA-249 MT; -POTA10CA42 PO; +POTA10CA43 PO; -THIA500T PO
[2022-10-19] MEDS ORDERED: INSULIN REGULAR (HUMULIN R) UD 100 UNITS/ML SYR SUBCUT ONE ×2 (19:00)
[2022-10-19] MEDS ORDERED: LEVETIRACETAM 500MG PREMIX 100 ML IV ONE (19:00)
[2022-10-19 19:14] LABS: EOSINOPHILS % 1.9 % (0.0-5.0); HEMATOCRIT. 39.2 % (42.0-52.0); HEMOGLOBIN. 13.3 g/dL (14.0-18.0); LYMPHOCYTES % 27.6 % (20.0-50.0); MEAN CORPUSCULAR VOLUME 82.5 fL (80.0-94.0); MEAN PLATELET VOLUME 8.8 fl (7.4-10.4); MONOCYTES % 8.8 % (2.0-8.0); NEUTROPHILS % 60.7 % (40.0-76.0); PLATELET 307 x1000/uL (130-400); RED BLOOD CELL COUNT 4.75 mill/uL (4.7-6.1)
[2022-10-19 19:19] LABS: CHLORIDE 100 mEq/L (98-107)
[2022-10-19 19:29] LABS: BETA HYDROXYBUTYRATE 0.9 mMol/L (0.0-0.3); ETHANOL BLOOD < 10 mg/dL
[2022-10-19] MEDS ORDERED: INSULIN REGULAR (HUMULIN R) 300UNITS/3ML VIAL SUBCUT NR (19:30)
[2022-10-19] MEDS ORDERED: PHENYTOIN SODIUM 1,000 MG in SODIUM CHLORIDE 0.9% 100 ML IV ONE (20:45)
[2022-10-19] MEDS ORDERED: LORAZEPAM 2MG/ML CPJ IV ONE (21:00)
[2022-10-20] VITALS (7 sets, daily range): BP systolic 107–117; BP diastolic 61–82
[2022-10-20] MEDS ORDERED: PHENYTOIN SODIUM 1,000 MG in SODIUM CHLORIDE 0.9% 100 ML IV NR (01:40)
[2022-10-20] MEDS ORDERED: DEXTROSE 50% WATER 50ML SYRINGE IV PRN (02:30)
[2022-10-20] MEDS ORDERED: HYDROCODONE/ACETAMINOPHEN 10/325MG TABLET PO PRN (02:30)
[2022-10-20] MEDS ORDERED: LORAZEPAM 2MG/ML CPJ IV PRN (02:30)
[2022-10-20] MEDS ORDERED: ZOLPIDEM TARTRATE 5MG TABLET PO PRN (02:30)
[2022-10-20] MEDS: BLOOD SUGAR DIAGNOSTIC STRIP TEST SCH ×5 (02:41→21:13)
[2022-10-20] MEDS ORDERED: NALOXONE HCL 0.4MG/ML VIAL IV PRN (03:00)
[2022-10-20] MEDS: INSULIN LISPRO 100 UNITS/ML SUBCUT SCH ×5 (03:02→21:14)
[2022-10-20 03:46] LABS: BASOPHILS % 0.6 % (0.0-2.0); EOSINOPHILS % 0.8 % (0.0-5.0); HEMATOCRIT. 35.7 % (42.0-52.0); HEMOGLOBIN. 12.2 g/dL (14.0-18.0); LYMPHOCYTES % 16.8 % (20.0-50.0); MEAN CORPUSCULAR HEMOGLOBIN 27.8 pg (28.0-32.0); MEAN CORPUSCULAR VOLUME 81.3 fL (80.0-94.0); MEAN PLATELET VOLUME 9.2 fl (7.4-10.4); MONOCYTES % 9.8 % (2.0-8.0); PLATELET 289 x1000/uL (130-400); RED BLOOD CELL COUNT 4.39 mill/uL (4.7-6.1); RED CELL DISTRIBUTION WIDTH 12.9 % (11.6-14.6)
[2022-10-20] MEDS ORDERED: PHENYTOIN SODIUM EXTENDED 100MG CAPSULE PO NR (04:30)
[2022-10-20 05:00] LABS: CHLORIDE 95 mEq/L (98-107)
[2022-10-20] MEDS: LEVETIRACETAM 500MG TABLET PO SCH ×2 (08:35→21:12)
[2022-10-20] MEDS: MULTIVITAMINS,THER W-MINERALS TABLET PO SCH (08:35)
[2022-10-20] MEDS: FOLIC ACID 1MG TABLET PO SCH (08:35)
[2022-10-20] MEDS: METFORMIN HCL 500MG TABLET PO SCH ×2 (08:36→18:30)
[2022-10-20] MEDS: ENOXAPARIN 40MG/0.4ML SYR SUBCUT SCH (08:36)
[2022-10-20] MEDS: AMLODIPINE 10MG TABLET PO SCH (09:00)
[2022-10-20] MEDS ORDERED: METOPROLOL SUCCINATE 50MG ER TABLET PO SCH (09:00)
[2022-10-20] MEDS ORDERED: LIDOCAINE HCL 1% 30ML VIAL (10MG/ML) ONE (09:20)
[2022-10-20] MEDS ORDERED: PHENYTOIN SODIUM EXTENDED 100MG CAPSULE PO SCH (21:00)
[2022-10-20] MEDS ORDERED: INSULIN GLARGINE 100 UNITS/ML SUBCUT SCH (22:00)
[2022-10-21] VITALS: BP 131/61
[2022-10-21 04:00] VITALS: BP 101/73
[2022-10-21] MEDS: BLOOD SUGAR DIAGNOSTIC STRIP TEST SCH ×3 (06:01→16:37)
[2022-10-21] MEDS: INSULIN LISPRO 100 UNITS/ML SUBCUT SCH ×5 (06:32→16:39)
[2022-10-21] MEDS: METFORMIN HCL 500MG TABLET PO SCH (07:10)
[2022-10-21 08:00] VITALS: BP 110/70
[2022-10-21] MEDS ORDERED: LANTUSUD SUBCUT ×2 (08:37)
[2022-10-21] MEDS ORDERED: INSU100I28 SQ (08:39)
[2022-10-21] MEDS: MULTIVITAMINS,THER W-MINERALS TABLET PO SCH (09:07)
[2022-10-21] MEDS: FOLIC ACID 1MG TABLET PO SCH (09:07)
[2022-10-21] MEDS: LEVETIRACETAM 500MG TABLET PO SCH (09:07)
[2022-10-21] MEDS: ENOXAPARIN 40MG/0.4ML SYR SUBCUT SCH (09:08)
[2022-10-21] MEDS: AMLODIPINE 10MG TABLET PO SCH (09:08)
[2022-10-21 10:29] VITALS: BP 110/70
[2022-10-21 12:00] VITALS: BP 115/72
[2022-10-21 16:00] VITALS: BP 102/69
== END 2022-10-21 17:38 | disposition home or self-care (01) | DRG 53 ==
LOC: ER 18:29 → 7EST 22:46 → EDBEDREQ 23:20 → EDBEDREQTM 23:20
PROVIDERS: ADMIT Internal Medicine; ATTEND Internal Medicine
PROC: B54MZZA Ultrasonography of Right Upper Extremity Veins, Guidance (ICD-10-PCS; principal; 2022-10-20)
PROC: 05HY33Z Insertion of Infusion Device into Upper Vein, Percutaneous Approach (ICD-10-PCS; 2022-10-20)
DX: G40.909 Epilepsy, unspecified, not intractable, without status epilepticus (principal); I50.9 Heart failure, unspecified; E87.1 Hypo-osmolality and hyponatremia; E11.65 Type 2 diabetes mellitus with hyperglycemia; Z88.0 Allergy status to penicillin; Z88.5 Allergy status to narcotic agent; Z88.6 Allergy status to analgesic agent; Z79.4 Long term (current) use of insulin; Z91.14 Patient's other noncompliance with medication regimen; Z86.73 Personal history of transient ischemic attack (TIA), and cerebral infarction without residual deficits
CPT/HCPCS: 36415; 36573; 71045; 80048; 80053; 80185; 80320; 82010; 82962; 83036; 84484; 85025; 93005; 99285; C1725; C1769; C1893; J1165; J1650; J1815; J1953; J3490; J7050; G0480

== ENCOUNTER 2022-10-26 23:28 | Inpatient (IN) | payer MEDICAID ==
[~2022-10-26] VITALS: Ht 180.3 cm; Wt 75.3 kg
[~2022-10-26 23:28] MED LIST changes: +INSU100I28 SQ
[2022-10-27] MEDS ORDERED: SODIUM CHLORIDE 0.9% 1,000 ML IV ONE ×2 (01:15→03:00)
[2022-10-27] MEDS ORDERED: LEVETIRACETAM 1000MG PREMIX 100 ML IV ONE (01:15)
[2022-10-27 01:29] LABS: CLARITY URINE CLEAR (CLEAR); COLOR URINE YELLOW (YELLOW); KETONES URINE NEGATIVE (NEGATIVE); LEUKOCYTE ESTERASE URINE NEGATIVE (NEGATIVE); NITRITE URINE NEGATIVE (NEGATIVE); OCCULT BLOOD URINE NEGATIVE (NEGATIVE); PH URINE 7.5 (4.5-8.0); PROTEIN URINE NEGATIVE (NEGATIVE); SPECIFIC GRAVITY URINE 1.026 (1.005-1.030); UROBILINOGEN URINE 0.2 E.U./dL (0.2-1.0)
[2022-10-27 02:15] LABS: CHLORIDE 91 mEq/L (98-107)
[2022-10-27 02:24] LABS: BETA HYDROXYBUTYRATE 0.2 mMol/L (0.0-0.3); ETHANOL BLOOD < 10 mg/dL
[2022-10-27] MEDS ORDERED: ACETAMINOPHEN 325MG TABLET PO ONE (02:45)
[2022-10-27 02:57] LABS: BASOPHILS % 1.1 % (0.0-2.0); EOSINOPHILS % 1.9 % (0.0-5.0); HEMATOCRIT. 36.8 % (42.0-52.0); HEMOGLOBIN. 12.4 g/dL (14.0-18.0); LYMPHOCYTES % 24.5 % (20.0-50.0); MEAN CORPUSCULAR HEMOGLOBIN 28.1 pg (28.0-32.0); MEAN CORPUSCULAR VOLUME 83.5 fL (80.0-94.0); MONOCYTES % 5.8 % (2.0-8.0); NEUTROPHILS % 66.7 % (40.0-76.0); PLATELET 266 x1000/uL (130-400); RED CELL DISTRIBUTION WIDTH 12.9 % (11.6-14.6)
[2022-10-27] MEDS ORDERED: CHLORDIAZEPOXIDE 25MG CAPSULE PO ONE (03:00)
[2022-10-27] MEDS ORDERED: PHENYTOIN SODIUM EXTENDED 100MG CAPSULE PO ONE (03:15)
[2022-10-27 06:47] VITALS: BP 132/86
[2022-10-27 08:00] VITALS: BP 110/70
[2022-10-27] MEDS ORDERED: ONDANSETRON HCL 4MG/2ML INJ IV PRN (08:45)
[2022-10-27] MEDS ORDERED: ACETAMINOPHEN 325MG TABLET PO PRN (08:45)
[2022-10-27] MEDS ORDERED: DEXTROSE 50% WATER 50ML SYRINGE IV PRN (08:45)
[2022-10-27] MEDS ORDERED: GLIP5TAB12 MT (08:49)
[2022-10-27] MEDS ORDERED: AMLO2.5T45 MT (08:49)
[2022-10-27] MEDS: LEVETIRACETAM 500MG TABLET PO SCH ×2 (10:26→22:24)
[2022-10-27] MEDS: BLOOD SUGAR DIAGNOSTIC STRIP TEST SCH ×3 (11:40→21:00)
[2022-10-27 12:00] VITALS: BP 97/67
[2022-10-27] MEDS: INSULIN LISPRO 100 UNITS/ML SUBCUT SCH ×3 (12:10→22:26)
[2022-10-27] MEDS ORDERED: INSULIN LISPRO 100 UNITS/ML SUBCUT NR (12:15)
[2022-10-27] MEDS: INSULIN GLARGINE 100 UNITS/ML SUBCUT SCH ×2 (13:08→22:25)
[2022-10-27 16:00] VITALS: BP 111/97
[2022-10-27] MEDS ORDERED: PHENYTOIN SODIUM EXTENDED 100MG CAPSULE PO NR (18:30)
[2022-10-27 20:00] VITALS: BP 109/75
[2022-10-27] MEDS: PHENYTOIN SODIUM EXTENDED 100MG CAPSULE PO SCH (21:00)
[2022-10-28] VITALS (7 sets, daily range): BP systolic 14–123; BP diastolic 62–80
[2022-10-28] MEDS: BLOOD SUGAR DIAGNOSTIC STRIP TEST SCH ×4 (06:36→20:55)
[2022-10-28] MEDS: INSULIN LISPRO 100 UNITS/ML SUBCUT SCH ×3 (06:42→18:33)
[2022-10-28] MEDS: LEVETIRACETAM 500MG TABLET PO SCH ×2 (09:34→20:55)
[2022-10-28 09:37] LABS: *AMPHETAMINES SCREEN URINE NEGATIVE (NEGATIVE); *BARBITURATES SCREEN URINE NEGATIVE (NEGATIVE); *BENZODIAZEPINES SCREEN URINE NEGATIVE (NEGATIVE); *COCAINE SCREEN URINE NEGATIVE (NEGATIVE); CANNABINOID URINE SCREEN NEGATIVE (NEGATIVE); METHADONE URINE SCREEN NEGATIVE (NEGATIVE); OPIATES URINE SCREEN NEGATIVE (NEGATIVE); PHENCYCLIDINE URINE SCREEN NEGATIVE (NEGATIVE)
[2022-10-28] MEDS: INSULIN GLARGINE 100 UNITS/ML SUBCUT SCH (10:00)
[2022-10-28] MEDS: PHENYTOIN SODIUM EXTENDED 100MG CAPSULE PO SCH (20:54)
[2022-10-28] MEDS ORDERED: INSULIN GLARGINE 100 UNITS/ML SUBCUT SCH (22:00)
== END 2022-10-28 21:50 | disposition home or self-care (01) | DRG 53 ==
LOC: ER 23:28 → 7EST 10-27 04:28 → EDBEDREQTM 10-27 04:32 → EDBEDREQ 10-27 04:32 → ENRESERV 10-27 04:33
PROVIDERS: ADMIT Internal Medicine; ATTEND Internal Medicine
DX: G40.909 Epilepsy, unspecified, not intractable, without status epilepticus (principal); I50.9 Heart failure, unspecified; E87.1 Hypo-osmolality and hyponatremia; D64.9 Anemia, unspecified; E11.65 Type 2 diabetes mellitus with hyperglycemia; F17.210 Nicotine dependence, cigarettes, uncomplicated; Z86.73 Personal history of transient ischemic attack (TIA), and cerebral infarction without residual deficits; Z88.0 Allergy status to penicillin; Z91.199 Patient's noncompliance with other medical treatment and regimen due to unspecified reason; Z88.8 Allergy status to other drugs, medicaments and biological substances
CPT/HCPCS: 36415; 71045; 80053; 80185; 80305; 80320; 81003; 82010; 82962; 83036; 85025; 99285; J1815; J1953; J7030; G0480

== ENCOUNTER 2022-11-03 15:45 | Emergency (ER) | payer MEDICAID ==
[~2022-11-03] VITALS: Ht 172.7 cm; Wt 80.0 kg
[~2022-11-03 15:45] MED LIST changes: +AMLO2.5T45 MT; +GLIP5TAB12 MT
[2022-11-03 20:14] VITALS: BP 113/72
[2022-11-04] MEDS ORDERED: L10 MT (08:41)
[2022-11-04] MEDS ORDERED: IBUP-2028 MT (08:41)
== END 2022-11-03 20:17 | disposition home or self-care (01) ==
LOC: ER 15:45
DX: F32.9 Major depressive disorder, single episode, unspecified (principal); F10.229 Alcohol dependence with intoxication, unspecified; F41.9 Anxiety disorder, unspecified; I11.0 Hypertensive heart disease with heart failure; I50.9 Heart failure, unspecified; Z79.899 Other long term (current) drug therapy; Y90.0 Blood alcohol level of less than 20 mg/100 ml
CPT/HCPCS: 80320; 82962; 99283; Z7610

== ENCOUNTER 2022-11-03 23:23 | Emergency (ER) | payer MEDICAID ==
[~2022-11-03] VITALS: Ht 180.3 cm; Wt 83.0 kg
[2022-11-04] MEDS ORDERED: LEVETIRACETAM 500MG TABLET PO ONE (06:15)
[2022-11-04] MEDS ORDERED: CHLORDIAZEPOXIDE 25MG CAPSULE PO ONE (06:15)
[2022-11-04] MEDS ORDERED: ACETAMINOPHEN 325MG TABLET PO ONE (06:45)
[2022-11-04 08:15] LABS: BASOPHILS % 0.7 % (0.0-2.0); EOSINOPHILS % 4.1 % (0.0-5.0); HEMATOCRIT. 35.4 % (42.0-52.0); HEMOGLOBIN. 11.6 g/dL (14.0-18.0); MEAN CORPUSCULAR HEMOGLOBIN 27.9 pg (28.0-32.0); MEAN CORPUSCULAR VOLUME 85.5 fL (80.0-94.0); MEAN PLATELET VOLUME 8.6 fl (7.4-10.4); MONOCYTES % 7.6 % (2.0-8.0); NEUTROPHILS % 55.6 % (40.0-76.0); PLATELET 203 x1000/uL (130-400); RED BLOOD CELL COUNT 4.15 mill/uL (4.7-6.1); RED CELL DISTRIBUTION WIDTH 13.3 % (11.6-14.6)
[2022-11-04 08:21] LABS: CHLORIDE 107 mEq/L (98-107)
[2022-11-04] MEDS ORDERED: IBUP-2028 MT (08:41)
[2022-11-04] MEDS ORDERED: L10 MT (08:41)
[2022-11-04 09:40] VITALS: BP 137/72
== END 2022-11-04 09:41 | disposition home or self-care (01) ==
LOC: ER 23:23
DX: R56.9 Unspecified convulsions (principal); F10.20 Alcohol dependence, uncomplicated; I10 Essential (primary) hypertension; F17.200 Nicotine dependence, unspecified, uncomplicated; Z79.899 Other long term (current) drug therapy
CPT/HCPCS: 36415; 70450; 80053; 82962; 83690; 85025; 99284; Z7610

== ENCOUNTER 2023-11-20 21:47 | Emergency (ER) | payer MEDICAID ==
[~2023-11-20] VITALS: Ht 180.3 cm; Wt 69.0 kg
[~2023-11-20 21:47] MED LIST changes: +CHLO25CA11 PO; -GLIP5TAB12 MT; +GLIP5TAB22 MT; +IBUP-2028 MT; +KEPP500 MT; +L10 MT; -L25 PO; -POTA10CA43 PO; +POTA10CA83 PO
[2023-11-20 21:55] VITALS: O2SAT 100
[2023-11-21] MEDS: SODIUM CHLORIDE 0.9% 1,000 ML IV ONE (00:47)
[2023-11-21] MEDS: LEVETIRACETAM 1000MG PREMIX 1,000 ML IV ONE (00:47)
[2023-11-21 01:00] LABS: CARBON DIOXIDE 28 mEq/L (21-32); CHLORIDE 105 mEq/L (98-107); POTASSIUM 3.6 mEq/L (3.5-5.1); SODIUM 141 mEq/L (136-145)
[2023-11-21 01:02] LABS: EOSINOPHILS % 4.5 % (0.0-5.0); HEMATOCRIT. 35.8 % (42.0-52.0); HEMOGLOBIN. 11.9 g/dL (14.0-18.0); LYMPHOCYTES % 33.4 % (20.0-50.0); MEAN CORPUSCULAR HEMOGLOBIN 27.5 pg (28.0-32.0); MEAN CORPUSCULAR HGB CONC 33.2 g/dL (31.0-37.0); MEAN CORPUSCULAR VOLUME 82.9 fL (80.0-94.0); MEAN PLATELET VOLUME 8.1 fl (7.4-10.4); NEUTROPHILS % 57.1 % (40.0-76.0); PLATELET 316 x1000/uL (130-400); RED BLOOD CELL COUNT 4.32 mill/uL (4.7-6.1); RED CELL DISTRIBUTION WIDTH 13.6 % (11.6-14.6); WHITE BLOOD COUNT 5.3 x1000/uL (4.5-11.0)
[2023-11-21 01:06] LABS: CREATININE 1.3 mg/dL (0.6-1.3); ETHANOL BLOOD 171 mg/dL (<10); GLUCOSE 185 mg/dL (70-105); UREA NITROGEN BLOOD 17 mg/dL (9-23)
[2023-11-21 01:07] LABS: ALANINE AMINOTRANSFERASE 23 IU/L (10-49)
[2023-11-21 01:08] LABS: ALBUMIN 4.7 g/dL (3.2-4.8); ASPARTATE AMINOTRANSFERASE 21 IU/L (<34); BILIRUBIN TOTAL 0.3 mg/dL (0.1-1.0); PROTEIN TOTAL 7.4 g/dL (6.0-8.3)
[2023-11-21 01:15] LABS: ACETAMINOPHEN < 2 ug/mL (10-30)
[2023-11-21] MEDS: LEVETIRACETAM 500MG TABLET PO ONE (01:21)
[2023-11-21 06:15] VITALS: BP 113/66; PULSE 91; RESP 18; TEMP 98
== END 2023-11-21 06:27 | disposition home or self-care (01) ==
LOC: ER 21:47
DX: R56.9 Unspecified convulsions (principal); F10.129 Alcohol abuse with intoxication, unspecified; R10.9 Unspecified abdominal pain; Z88.0 Allergy status to penicillin; Z91.018 Allergy to other foods; Y90.6 Blood alcohol level of 120-199 mg/100 ml
CPT/HCPCS: 36415; 93005; 99285; 80053; 80307; 80329; 80320; 83605; 85025; 70450; 96365; J7030; Z7610 ×7; G0480

== ENCOUNTER 2024-04-23 22:43 | Inpatient (IN) | payer MEDICAID ==
[~2024-04-23] VITALS: Ht 368.3 cm; Wt 73.0 kg
[~2024-04-23 22:43] MED LIST changes: -POTA10CA83 PO; +POTA10CA93 PO
[2024-04-23] MEDS: ONDANSETRON HCL 4MG/2ML INJ IV STA (22:48)
[2024-04-23] MEDS: SODIUM CHLORIDE 0.9% 1,000 ML IV ONE (23:00)
[2024-04-23 23:42] LABS: BASOPHILS % 0.7 % (0.0-2.0); DIFFERENTIAL COMMENT 0; EOSINOPHILS % 2.5 % (0.0-5.0); HEMOGLOBIN. 12.6 g/dL (14.0-18.0); LYMPHOCYTES % 30.6 % (20.0-50.0); MEAN CORPUSCULAR HEMOGLOBIN 26.8 pg (28.0-32.0); MEAN CORPUSCULAR HGB CONC 32.3 g/dL (31.0-37.0); MEAN CORPUSCULAR VOLUME 82.7 fL (80.0-94.0); MEAN PLATELET VOLUME 9.7 fl (7.4-10.4); MONOCYTES % 8.1 % (2.0-8.0); NEUTROPHILS % 58.1 % (40.0-76.0); PLATELET 261 x1000/uL (130-400); RED BLOOD CELL COUNT 4.72 mill/uL (4.7-6.1); RED CELL DISTRIBUTION WIDTH 13.7 % (11.6-14.6); WHITE BLOOD COUNT 5.9 x1000/uL (4.5-11.0)
[2024-04-23 23:54] LABS: CHLORIDE 103 mEq/L (98-107); POTASSIUM 5.4 mEq/L (3.5-5.1); SODIUM 136 mEq/L (136-145)
[2024-04-23 23:55] LABS: CALCIUM 10.2 mg/dL (8.7-10.4); CARBON DIOXIDE 24 mEq/L (21-32)
[2024-04-24] LABS: CREATININE 1.4 mg/dL (0.6-1.3); UREA NITROGEN BLOOD 17 mg/dL (9-23)
[2024-04-24 00:02] LABS: ALANINE AMINOTRANSFERASE 19 IU/L (10-49); ALBUMIN 5.2 g/dL (3.2-4.8); ASPARTATE AMINOTRANSFERASE 35 IU/L (<34); BILIRUBIN DIRECT 0.2 mg/dL (<=3.0); BILIRUBIN TOTAL 0.8 mg/dL (0.1-1.0)
[2024-04-24 00:06] LABS: GLUCOSE 335 mg/dL (70-105)
[2024-04-24 00:07] LABS: ETHANOL BLOOD < 10 mg/dL (<10); TROPONIN I HIGH SENSITIVITY < 4 ng/L (3.0-53)
[2024-04-24] MEDS: ONDANSETRON HCL 4MG/2ML INJ ONE (03:02)
[2024-04-24] MEDS: INSULIN REGULAR (HUMULIN R) 1000UNITS/10ML VIAL SUBCUT NR (03:30)
[2024-04-24 03:41] LABS: CLARITY URINE CLEAR (CLEAR); COLOR URINE YELLOW (YELLOW); GLUCOSE URINE 3+ (NEGATIVE); KETONES URINE NEGATIVE (NEGATIVE); LEUKOCYTE ESTERASE URINE NEGATIVE (NEGATIVE); NITRITE URINE NEGATIVE (NEGATIVE); OCCULT BLOOD URINE NEGATIVE (NEGATIVE); PROTEIN URINE NEGATIVE (NEGATIVE); SPECIFIC GRAVITY URINE 1.037 (1.005-1.030)
[2024-04-24 03:58] LABS: *AMPHETAMINES SCREEN URINE NEGATIVE (NEGATIVE)
[2024-04-24 04:00] LABS: *BARBITURATES SCREEN URINE NEGATIVE (NEGATIVE); *BENZODIAZEPINES SCREEN URINE NEGATIVE (NEGATIVE); *COCAINE SCREEN URINE NEGATIVE (NEGATIVE); METHADONE URINE SCREEN NEGATIVE (NEGATIVE); OPIATES URINE SCREEN NEGATIVE (NEGATIVE)
[2024-04-24 04:01] LABS: CANNABINOID URINE SCREEN NEGATIVE (NEGATIVE); ECSTASY MDMA SCREEN URINE NEGATIVE (NEGATIVE); PHENCYCLIDINE URINE SCREEN NEGATIVE (NEGATIVE)
[2024-04-24] MEDS: PANTOPRAZOLE SODIUM 40 MG/VIAL IV NR (04:20)
[2024-04-24] MEDS: MAGNESIUM/ALUMINUM HYDROXIDE/SIMETHICONE 30ML UDC PO NR (04:20)
[2024-04-24 04:38] LABS: BACTERIA URINE NONE SEEN; RBC URINE NONE SEEN /hpf (0-2); SQUAMOUS EPITHELIAL CELL URINE NONE SEEN /lpf (RARE/1+); WBC URINE NONE SEEN /hpf (0-2)
[2024-04-24] MEDS ORDERED: MAG355OR21 MT (05:09)
[2024-04-24] MEDS ORDERED: ONDA4TAB50 MT (05:09)
[2024-04-24 05:57] LABS: PROTHROMBIN TIME 11.4 sec (9.6-11.0)
[2024-04-24] MEDS ORDERED: ASPIRIN 81MG TABLET PO SCH (09:00)
[2024-04-24] MEDS ORDERED: LORAZEPAM 2MG/ML INJ IV PRN (09:00)
[2024-04-24] MEDS ORDERED: IPRATROPIUM/ALBUTEROL 0.5-3(2.5)MG/3ML NEB HHN PRN (09:00)
[2024-04-24] MEDS ORDERED: DEXTROSE 50% WATER 50ML SYRINGE IV PRN (09:00)
[2024-04-24] MEDS: ASPIRIN 81MG EC TABLET PO SCH (09:25)
[2024-04-24] MEDS: SODIUM CHLORIDE 0.45% 1,000 ML IV SCH (09:25)
[2024-04-24] MEDS: AMLODIPINE 5MG TABLET PO SCH (09:25)
[2024-04-24] MEDS: THIAMINE HCL 100MG TABLET PO SCH (09:25)
[2024-04-24] MEDS: LEVETIRACETAM 500MG TABLET PO SCH (09:25)
[2024-04-24] MEDS: FOLIC ACID 1MG TABLET PO SCH (09:25)
[2024-04-24] MEDS: BLOOD SUGAR DIAGNOSTIC STRIP TEST SCH (09:35)
[2024-04-24 09:54] LABS: HEMATOCRIT 34.7 % (42.0-52.0); HEMOGLOBIN 11.7 g/dL (14.0-18.0); MEAN CORPUSCULAR HEMOGLOBIN 27.1 pg (28.0-32.0); MEAN CORPUSCULAR HGB CONC 33.7 g/dL (31.0-37.0); MEAN CORPUSCULAR VOLUME 80.4 fL (80.0-94.0); PLATELET 243 x1000/uL (130-400); RED BLOOD CELL COUNT 4.31 mill/uL (4.7-6.1); RED CELL DISTRIBUTION WIDTH 13.6 % (11.6-14.6); WHITE BLOOD COUNT 6.5 x1000/uL (4.5-11.0)
[2024-04-24 10:10] LABS: CARBON DIOXIDE 30 mEq/L (21-32); CHLORIDE 103 mEq/L (98-107); POTASSIUM 3.7 mEq/L (3.5-5.1); SODIUM 138 mEq/L (136-145)
[2024-04-24 10:11] LABS: CALCIUM 9.7 mg/dL (8.7-10.4)
[2024-04-24 10:15] LABS: CREATININE 1.3 mg/dL (0.6-1.3); GLUCOSE 278 mg/dL (70-105); IRON 54 ug/dL (65-175)
[2024-04-24 10:16] LABS: UREA NITROGEN BLOOD 17 mg/dL (9-23)
[2024-04-24 10:17] LABS: ALANINE AMINOTRANSFERASE 15 IU/L (10-49); AMMONIA < 17 uMol/L (<32); ASPARTATE AMINOTRANSFERASE 12 IU/L (<34)
[2024-04-24 10:18] LABS: ALBUMIN 4.7 g/dL (3.2-4.8); BETA HYDROXYBUTYRATE 0.2 mMol/L (0.0-0.3); BILIRUBIN TOTAL 0.7 mg/dL (0.1-1.0); PHOSPHORUS 2.5 mg/dL (2.5-4.9); PROTEIN TOTAL 7.4 g/dL (6.0-8.3); TOTAL IRON BINDING CAPACITY 250 ug/dl (250-425)
[2024-04-24] MEDS: FOLIC ACID 1 MG, THIAMINE HCL 100 MG, MVI, ADULT NO.1 10 ML in DEXTROSE 5% WATER 1,000 ML IV ONE (11:10)
[2024-04-24 12:04] LABS: FERRITIN 93 ng/mL (22-322)
[2024-04-24 12:12] LABS: FOLIC ACID (FOLATE) SERUM > 20.00 ng/mL (>5.38); VITAMIN B12 SERUM 801 pg/mL (211-911)
[2024-04-24] MEDS: INSULIN LISPRO 100 UNITS/ML SUBCUT SCH ×2 (13:20→14:05)
[2024-04-24] MEDS: ONDANSETRON HCL 4MG/2ML INJ IV PRN (18:27)
[2024-04-24 20:00] VITALS: BP 132/80; PULSE 64; RESP 18; TEMP 36.3624
[2024-04-24 21:00] VITALS: BP 132/80; RESP 18; TEMP 36.33624; O2SAT 100
[2024-04-25 03:59] VITALS: BP_SYST 132; BP_SYST 142; BP_DIAS 78; PULSE 70; PULSE 80; RESP 18; RESP 20; TEMP 36.696
[2024-04-25] MEDS ORDERED: ARIP5TAB51 PO (05:44)
[2024-04-25] MEDS ORDERED: ASPI-1160 PO (05:48)
[2024-04-25] MEDS ORDERED: ATOR10TA69 PO (05:49)
[2024-04-25] MEDS ORDERED: FLUO20CA33 MT (05:51)
[2024-04-25] MEDS ORDERED: NICO-789 TP (05:52)
[2024-04-25] MEDS ORDERED: GLIP2.5T3 PO (05:55)
[2024-04-25 08:00] VITALS: BP 100/77; PULSE 81; RESP 20; TEMP 36.61404; O2SAT 100
[2024-04-25] MEDS: PANTOPRAZOLE SODIUM 40 MG/VIAL IV SCH (09:29)
[2024-04-25] MEDS: ACETAMINOPHEN 325MG TABLET PO PRN (10:27)
[2024-04-25] MEDS: INSULIN GLARGINE 100 UNITS/ML SUBCUT SCH (10:33)
[2024-04-25 12:00] VITALS: BP 112/68; PULSE 63; RESP 20; TEMP 36.50292; O2SAT 100
[2024-04-25 12:14] LABS: BASOPHILS % 0.5 % (0.0-2.0); EOSINOPHILS % 3.1 % (0.0-5.0); HEMATOCRIT. 35.9 % (42.0-52.0); HEMOGLOBIN. 11.8 g/dL (14.0-18.0); LYMPHOCYTES % 18.4 % (20.0-50.0); MEAN CORPUSCULAR HEMOGLOBIN 26.8 pg (28.0-32.0); MEAN CORPUSCULAR HGB CONC 32.9 g/dL (31.0-37.0); MEAN CORPUSCULAR VOLUME 81.4 fL (80.0-94.0); MEAN PLATELET VOLUME 9.2 fl (7.4-10.4); MONOCYTES % 8.8 % (2.0-8.0); NEUTROPHILS % 69.2 % (40.0-76.0); PLATELET 222 x1000/uL (130-400); RED BLOOD CELL COUNT 4.41 mill/uL (4.7-6.1); RED CELL DISTRIBUTION WIDTH 13.6 % (11.6-14.6); WHITE BLOOD COUNT 6.3 x1000/uL (4.5-11.0)
[2024-04-25 12:18] LABS: CHLORIDE 99 mEq/L (98-107); POTASSIUM 3.5 mEq/L (3.5-5.1); SODIUM 134 mEq/L (136-145)
[2024-04-25 12:19] LABS: CALCIUM 9.6 mg/dL (8.7-10.4); CARBON DIOXIDE 29 mEq/L (21-32)
[2024-04-25 12:24] LABS: CREATININE 1.3 mg/dL (0.6-1.3); GLUCOSE 294 mg/dL (70-105); TRIGLYCERIDE 72 mg/dL (0-150); UREA NITROGEN BLOOD 12 mg/dL (9-23)
[2024-04-25 12:25] LABS: LDL CHOLESTEROL 55 mg/dL (5-100)
[2024-04-25 12:26] LABS: CHOLESTEROL 107 mg/dL (<200); HDL CHOLESTEROL 38 mg/dL (>55)
[2024-04-25 12:28] LABS: T4 FREE 1.25 ng/dL (0.89-1.76); THYROID STIMULATING HORMONE 1.54 uIU/mL (0.55-4.78)
[2024-04-25 12:29] LABS: ALANINE AMINOTRANSFERASE 15 IU/L (10-49); ALBUMIN 4.4 g/dL (3.2-4.8); ASPARTATE AMINOTRANSFERASE 16 IU/L (<34); BILIRUBIN DIRECT 0.3 mg/dL (<=3.0); PROTEIN TOTAL 6.6 g/dL (6.0-8.3)
[2024-04-25 16:00] VITALS: BP 112/79; PULSE 75; RESP 20; TEMP 36.6696; O2SAT 98
[2024-04-25 20:00] VITALS: BP 124/67; PULSE 78; RESP 18; TEMP 37.2252; O2SAT 99
[2024-04-25] MEDS: NICOTINE 7MG PATCH TD NR (20:15)
[2024-04-26] VITALS: BP 108/78; PULSE 76; RESP 16; TEMP 37.7808; O2SAT 100
[2024-04-26 04:00] VITALS: BP 118/77; PULSE 87; RESP 18; TEMP 37.00296; O2SAT 99
[2024-04-26 07:34] LABS: HEMATOCRIT 35.4 % (42.0-52.0); HEMOGLOBIN 11.8 g/dL (14.0-18.0); MEAN CORPUSCULAR HEMOGLOBIN 26.9 pg (28.0-32.0); MEAN CORPUSCULAR HGB CONC 33.3 g/dL (31.0-37.0); MEAN CORPUSCULAR VOLUME 80.9 fL (80.0-94.0); PLATELET 237 x1000/uL (130-400); RED BLOOD CELL COUNT 4.37 mill/uL (4.7-6.1); RED CELL DISTRIBUTION WIDTH 13.6 % (11.6-14.6); WHITE BLOOD COUNT 6.9 x1000/uL (4.5-11.0)
[2024-04-26 07:36] LABS: CHLORIDE 102 mEq/L (98-107); POTASSIUM 3.5 mEq/L (3.5-5.1); SODIUM 134 mEq/L (136-145)
[2024-04-26 07:37] LABS: CALCIUM 9.4 mg/dL (8.7-10.4); CARBON DIOXIDE 26 mEq/L (21-32)
[2024-04-26 07:42] LABS: CREATININE 1.3 mg/dL (0.6-1.3); GLUCOSE 155 mg/dL (70-105); UREA NITROGEN BLOOD 12 mg/dL (9-23)
[2024-04-26 08:00] VITALS: BP 119/75; PULSE 77; RESP 17; TEMP 37.2252; O2SAT 100
[2024-04-26 12:00] VITALS: BP 118/77; PULSE 66; RESP 17; TEMP 37.89192; O2SAT 98
[2024-04-26] MEDS ORDERED: LANTUSUD SUBCUT (12:18)
[2024-04-26] MEDS ORDERED: INSLIS SUBCUT (12:18)
[2024-04-26] MEDS ORDERED: KEPP500 PO (12:18)
[2024-04-26 12:50] VITALS: BP 118/77; PULSE 66; TEMP 100.2; O2SAT 98
[2024-04-27] MEDS ORDERED: FAMOTIDINE 20MG/2ML VIAL IV SCH (09:00)
== END 2024-04-26 17:00 | disposition home or self-care (01) | DRG 53 ==
LOC: ER 22:43 → EDBEDREQSVC 04-24 09:14 → 5WST 04-24 17:30 → 8WST 04-24 23:37
PROVIDERS: ADMIT Preventive Medicine Clinical Informatics; ATTEND Preventive Medicine Clinical Informatics
DX: G40.909 Epilepsy, unspecified, not intractable, without status epilepticus (principal); N17.9 Acute kidney failure, unspecified; E11.22 Type 2 diabetes mellitus with diabetic chronic kidney disease; E11.40 Type 2 diabetes mellitus with diabetic neuropathy, unspecified; D64.9 Anemia, unspecified; E87.5 Hyperkalemia; I12.9 Hypertensive chronic kidney disease with stage 1 through stage 4 chronic kidney disease, or unspecified chronic kidney disease; N18.9 Chronic kidney disease, unspecified; R90.82 White matter disease, unspecified; R00.1 Bradycardia, unspecified; F17.210 Nicotine dependence, cigarettes, uncomplicated; Z88.0 Allergy status to penicillin; Z79.4 Long term (current) use of insulin; Z88.5 Allergy status to narcotic agent; Z86.74 Personal history of sudden cardiac arrest; Z91.018 Allergy to other foods; Z87.820 Personal history of traumatic brain injury
CPT/HCPCS: 36415; 71045; 80048; 80053; 80061; 80076; 80305; 80320; 81003; 82010; 82140; 82306; 82542; 82607; 82728; 82746; 82962; 83036; 83540; 83550; 83605; 83735; 83880; 84100; 84145; 84439; 84443; 84484; 85025; 85027; 93005; 99285; C1893; J1815; J2405; J2470; J3411; J3490; J7030; J7070; G0480

== ENCOUNTER 2024-10-28 11:22 | Emergency (ER) | payer MEDICAID ==
[~2024-10-28] VITALS: Ht 177.8 cm; Wt 75.0 kg
[~2024-10-28 11:22] MED LIST changes: +ASPI-1160 PO; +ATOR10TA69 PO; -CHLO25CA11 PO; -FOLI-43 PO; -FURO-152 PO; -GLIP5TAB22 MT; -IBUP-2028 MT; +INSLIS SUBCUT; -INSU100I28 SQ; -KEPP500 MT; -L10 MT; +LANTUSUD SUBCUT; -METO-396 PO; -MULT-1146 PO; -OMEP20TA15 PO; -PHEN100C4 PO; -POTA10CA93 PO
[2024-10-28 11:32] VITALS: O2SAT 100
[2024-10-28] MEDS: LORAZEPAM 2MG/ML INJ IV ONE (12:25)
[2024-10-28 12:32] LABS: BASOPHILS % 0.8 % (0.0-2.0); EOSINOPHILS % 1.6 % (0.0-5.0); HEMATOCRIT. 33.5 % (42.0-52.0); HEMOGLOBIN. 10.9 g/dL (14.0-18.0); LYMPHOCYTES % 19.4 % (20.0-50.0); MEAN CORPUSCULAR HEMOGLOBIN 26.7 pg (28.0-32.0); MEAN CORPUSCULAR HGB CONC 32.6 g/dL (31.0-37.0); MEAN CORPUSCULAR VOLUME 81.8 fL (80.0-94.0); MEAN PLATELET VOLUME 8.1 fl (7.4-10.4); MONOCYTES % 6.7 % (2.0-8.0); NEUTROPHILS % 71.5 % (40.0-76.0); PLATELET 244 x1000/uL (130-400); RED BLOOD CELL COUNT 4.09 mill/uL (4.7-6.1); RED CELL DISTRIBUTION WIDTH 13.8 % (11.6-14.6); WHITE BLOOD COUNT 4.5 x1000/uL (4.5-11.0)
[2024-10-28 12:42] LABS: CARBON DIOXIDE 28 mEq/L (21-32); CHLORIDE 103 mEq/L (98-107); POTASSIUM 4.3 mEq/L (3.5-5.1); SODIUM 137 mEq/L (136-145)
[2024-10-28 12:43] LABS: CALCIUM 9.4 mg/dL (8.7-10.4)
[2024-10-28 12:48] LABS: GLUCOSE 265 mg/dL (70-105); UREA NITROGEN BLOOD 13 mg/dL (9-23)
[2024-10-28] MEDS: LEVETIRACETAM 500MG TABLET PO ONE (13:19)
[2024-10-28] MEDS ORDERED: KEPP500 PO (13:21)
[2024-10-28 13:38] LABS: ETHANOL BLOOD < 10 mg/dL (<10)
[2024-10-28 13:51] VITALS: BP 140/90; PULSE 67; RESP 12; TEMP 36.8; O2SAT 100
[2024-10-28 14:58] LABS: CLARITY URINE CLEAR (CLEAR); COLOR URINE YELLOW (YELLOW); GLUCOSE URINE 3+ (NEGATIVE); KETONES URINE TRACE (NEGATIVE); LEUKOCYTE ESTERASE URINE NEGATIVE (NEGATIVE); NITRITE URINE NEGATIVE (NEGATIVE); OCCULT BLOOD URINE NEGATIVE (NEGATIVE); PH URINE 5.5 (4.5-8.0); PROTEIN URINE NEGATIVE (NEGATIVE); SPECIFIC GRAVITY URINE 1.035 (1.005-1.030)
[2024-10-28 15:18] LABS: BACTERIA URINE RARE; RBC URINE 0-2 /hpf (0-2); SQUAMOUS EPITHELIAL CELL URINE RARE /lpf (RARE/1+); WBC URINE 0-2 /hpf (0-2); YEAST URINE NONE SEEN
[2024-10-28 15:26] LABS: *AMPHETAMINES SCREEN URINE NEGATIVE (NEGATIVE)
[2024-10-28 15:27] LABS: *BARBITURATES SCREEN URINE NEGATIVE (NEGATIVE); *BENZODIAZEPINES SCREEN URINE NEGATIVE (NEGATIVE); *COCAINE SCREEN URINE NEGATIVE (NEGATIVE); CANNABINOID URINE SCREEN NEGATIVE (NEGATIVE); ECSTASY MDMA SCREEN URINE NEGATIVE (NEGATIVE); METHADONE URINE SCREEN NEGATIVE (NEGATIVE); OPIATES URINE SCREEN NEGATIVE (NEGATIVE); PHENCYCLIDINE URINE SCREEN NEGATIVE (NEGATIVE)
== END 2024-10-28 14:20 | disposition home or self-care (01) ==
LOC: ER 11:22
DX: R56.9 Unspecified convulsions (principal); E11.9 Type 2 diabetes mellitus without complications; Z79.4 Long term (current) use of insulin; Z79.82 Long term (current) use of aspirin; Z88.0 Allergy status to penicillin; Z88.5 Allergy status to narcotic agent; Z91.148 Patient's other noncompliance with medication regimen for other reason
CPT/HCPCS: 80305; 80048; 81003; 80320; 85025; 36415; 96374; 99283; J2060; G0480

== ENCOUNTER 2025-03-03 21:50 | Inpatient (IN) | payer MEDICAID ==
[~2025-03-03] VITALS: Ht 177.8 cm; Wt 70.3 kg
[~2025-03-03 21:50] MED LIST changes: -ATOR10TA69 PO; +ATOR40TA70 MT; +CLOP-31 MT
[2025-03-03 22:00] VITALS: BP 124/83; PULSE 82; RESP 18; TEMP 36.5292
[2025-03-03] MEDS ORDERED: DEXTROSE 50% WATER 50ML SYRINGE IV PRN (23:30)
[2025-03-04] VITALS: BP 124/83; PULSE 82; RESP 18; TEMP 36.5; O2SAT 99
[2025-03-04] MEDS ORDERED: BLOOD SUGAR DIAGNOSTIC STRIP TEST SCH (06:30)
[2025-03-04] MEDS: BLOOD SUGAR DIAGNOSTIC STRIP TEST SCH (06:35)
[2025-03-04 08:00] VITALS: BP 119/75; PULSE 77; RESP 16; TEMP 36.4; O2SAT 98
[2025-03-04] MEDS: INSULIN LISPRO 100 UNITS/ML SUBCUT SCH (09:00)
[2025-03-04] MEDS: NICOTINE 7MG PATCH TD SCH (09:55)
[2025-03-04] MEDS: DOCUSATE SODIUM 250MG CAPSULE PO SCH (09:55)
[2025-03-04] MEDS: AMLODIPINE 10MG TABLET PO SCH (09:57)
[2025-03-04] MEDS: ASPIRIN 81MG TABLET PO SCH (09:57)
[2025-03-04] MEDS: LEVETIRACETAM 500MG TABLET PO SCH (09:57)
[2025-03-04] MEDS: INSULIN GLARGINE 100 UNITS/ML SUBCUT SCH (10:00)
[2025-03-04 10:11] LABS: BASOPHILS % 0.8 % (0.0-2.0); EOSINOPHILS % 2.5 % (0.0-5.0); HEMATOCRIT. 39.0 % (42.0-52.0); HEMOGLOBIN. 12.7 g/dL (14.0-18.0); LYMPHOCYTES % 9.3 % (20.0-50.0); MEAN PLATELET VOLUME 8.2 fl (7.4-10.4); MONOCYTES % 7.7 % (2.0-8.0); NEUTROPHILS % 79.7 % (40.0-76.0); PLATELET 251 x1000/uL (130-400); RED BLOOD CELL COUNT 4.88 mill/uL (4.7-6.1); RED CELL DISTRIBUTION WIDTH 13.7 % (11.6-14.6)
[2025-03-04 10:31] LABS: CREATININE 1.2 mg/dL (0.6-1.3); UREA NITROGEN BLOOD 19 mg/dL (9-23)
[2025-03-04 10:33] LABS: ASPARTATE AMINOTRANSFERASE 18 IU/L (<34)
[2025-03-04 10:34] LABS: BILIRUBIN TOTAL 0.6 mg/dL (0.1-1.0); PROTEIN TOTAL 7.3 g/dL (6.0-8.3)
[2025-03-04 20:00] VITALS: BP 137/82; PULSE 87; RESP 18; TEMP 36.7; O2SAT 99
[2025-03-04] MEDS: ATORVASTATIN CALCIUM 40MG TABLET PO SCH (21:20)
[2025-03-04] MEDS: ENOXAPARIN 40MG/0.4ML SYR SUBCUT SCH (22:16)
[2025-03-05 06:01] LABS: BASOPHILS % 0.9 % (0.0-2.0); EOSINOPHILS % 1.2 % (0.0-5.0); HEMATOCRIT. 34.4 % (42.0-52.0); HEMOGLOBIN. 11.2 g/dL (14.0-18.0); LYMPHOCYTES % 14.5 % (20.0-50.0); MEAN PLATELET VOLUME 8.1 fl (7.4-10.4); MONOCYTES % 14.5 % (2.0-8.0); NEUTROPHILS % 68.9 % (40.0-76.0); PLATELET 233 x1000/uL (130-400); RED BLOOD CELL COUNT 4.33 mill/uL (4.7-6.1); RED CELL DISTRIBUTION WIDTH 13.6 % (11.6-14.6)
[2025-03-05 06:13] LABS: CREATININE 1.2 mg/dL (0.6-1.3); UREA NITROGEN BLOOD 25 mg/dL (9-23)
[2025-03-05 06:15] LABS: ASPARTATE AMINOTRANSFERASE 33 IU/L (<34); BILIRUBIN TOTAL 0.5 mg/dL (0.1-1.0); PROTEIN TOTAL 6.8 g/dL (6.0-8.3)
[2025-03-05 06:34] LABS: FOLIC ACID (FOLATE) SERUM 13.40 ng/mL (>5.38)
[2025-03-05 06:36] LABS: VITAMIN B12 SERUM 577 pg/mL (211-911)
[2025-03-05 08:00] VITALS: BP 111/76; PULSE 83; RESP 18; TEMP 36.6; O2SAT 96
[2025-03-05] MEDS: FERROUS SULFATE 325MG TABLET PO SCH (18:29)
[2025-03-05 20:00] VITALS: BP 134/84; PULSE 92; RESP 18; TEMP 36.7; O2SAT 99
[2025-03-05] MEDS: LACTULOSE 20G/30ML UDC PO SCH (21:32)
[2025-03-06 08:00] VITALS: BP 122/85; PULSE 90; RESP 18; TEMP 36.4; O2SAT 99
[2025-03-06] MEDS: ASCORBIC ACID 500 MG TABLET PO SCH (11:12)
[2025-03-06] MEDS: INSULIN LISPRO 100 UNITS/ML SUBCUT SCH (13:23)
[2025-03-06] MEDS: ERGOCALCIFEROL 50000UNITS CAPSULE PO SCH (17:44)
[2025-03-06 20:00] VITALS: BP 116/91; PULSE 94; RESP 18; TEMP 36.9; O2SAT 97
[2025-03-06] MEDS ORDERED: INSULIN GLARGINE 100 UNITS/ML SUBCUT SCH (22:00)
[2025-03-06] MEDS: INSULIN GLARGINE 100 UNITS/ML SUBCUT SCH (22:00)
[2025-03-07 08:00] VITALS: BP 101/61; PULSE 77; RESP 20; TEMP 36.5; O2SAT 97
[2025-03-07] MEDS: LACTULOSE 20G/30ML UDC PO SCH (08:52)
[2025-03-07 20:00] VITALS: BP 122/82; PULSE 93; RESP 19; TEMP 37.3; O2SAT 100
[2025-03-08] MEDS ORDERED: INSULIN LISPRO 100 UNITS/ML SUBCUT SCH (07:00)
[2025-03-08] MEDS: BLOOD SUGAR DIAGNOSTIC STRIP TEST SCH (07:02)
[2025-03-08 08:00] VITALS: BP 115/77; PULSE 77; RESP 18; TEMP 36.7; O2SAT 100
[2025-03-08] MEDS: INSULIN LISPRO (LOW DOSE) 100 UNITS/ML SUBCUT SCH (08:40)
[2025-03-08] MEDS: INSULIN LISPRO 100 UNITS/ML SUBCUT SCH (08:40)
[2025-03-08 20:00] VITALS: BP 125/82; PULSE 87; RESP 15; TEMP 36.1; O2SAT 100
[2025-03-09 08:15] VITALS: BP 96/52; PULSE 69; RESP 18; TEMP 36.6; O2SAT 100
[2025-03-09 13:00] VITALS: BP 96/52; PULSE 69; RESP 18; TEMP 36.6; O2SAT 100
[2025-03-09] MEDS: INSULIN LISPRO 100 UNITS/ML SUBCUT SCH (17:00)
[2025-03-09 20:00] VITALS: BP 126/82; PULSE 71; RESP 18; TEMP 36.4; O2SAT 99
[2025-03-09] MEDS: INSULIN GLARGINE 100 UNITS/ML SUBCUT SCH (21:32)
[2025-03-10 08:00] VITALS: BP 95/66; PULSE 60; RESP 18; TEMP 36.6; O2SAT 100
[2025-03-10 09:07] LABS: THYROID PEROXIDASE ANTIBODY 10 IU/mL (0-34)
[2025-03-10 10:16] LABS: BASOPHILS % 1.1 % (0.0-2.0); EOSINOPHILS % 3.4 % (0.0-5.0); HEMATOCRIT. 32.9 % (42.0-52.0); HEMOGLOBIN. 11.0 g/dL (14.0-18.0); LYMPHOCYTES % 39.9 % (20.0-50.0); MEAN PLATELET VOLUME 8.4 fl (7.4-10.4); MONOCYTES % 12.9 % (2.0-8.0); NEUTROPHILS % 42.7 % (40.0-76.0); PLATELET 268 x1000/uL (130-400); RED BLOOD CELL COUNT 4.12 mill/uL (4.7-6.1); RED CELL DISTRIBUTION WIDTH 13.2 % (11.6-14.6)
[2025-03-10 10:40] LABS: CREATININE 1.1 mg/dL (0.6-1.3); UREA NITROGEN BLOOD 20 mg/dL (9-23)
[2025-03-10 10:42] LABS: ASPARTATE AMINOTRANSFERASE 17 IU/L (<34); BILIRUBIN TOTAL 0.4 mg/dL (0.1-1.0); PROTEIN TOTAL 6.6 g/dL (6.0-8.3)
[2025-03-10] MEDS: POTASSIUM CHLORIDE 20MEQ TABLET SR PO SCH (11:05)
[2025-03-10] MEDS: LACTULOSE 20G/30ML UDC PO SCH (17:53)
[2025-03-10 20:00] VITALS: BP 131/82; PULSE 81; RESP 18; TEMP 36.6; O2SAT 99
[2025-03-11 20:00] VITALS: BP 122/90; PULSE 83; RESP 18; TEMP 36.6; O2SAT 99
[2025-03-11 21:16] LABS: CREATININE 1.3 mg/dL (0.6-1.3); UREA NITROGEN BLOOD 26 mg/dL (9-23)
[2025-03-12 06:14] LABS: BASOPHILS % 0.9 % (0.0-2.0); EOSINOPHILS % 3.4 % (0.0-5.0); HEMATOCRIT. 33.0 % (42.0-52.0); HEMOGLOBIN. 10.8 g/dL (14.0-18.0); LYMPHOCYTES % 33.5 % (20.0-50.0); MEAN PLATELET VOLUME 8.3 fl (7.4-10.4); MONOCYTES % 9.7 % (2.0-8.0); NEUTROPHILS % 52.5 % (40.0-76.0); PLATELET 256 x1000/uL (130-400); RED BLOOD CELL COUNT 4.14 mill/uL (4.7-6.1); RED CELL DISTRIBUTION WIDTH 13.7 % (11.6-14.6)
[2025-03-12 07:21] LABS: CREATININE 1.2 mg/dL (0.6-1.3); UREA NITROGEN BLOOD 30 mg/dL (9-23)
[2025-03-12 08:00] VITALS: BP 122/71; PULSE 67; RESP 16; TEMP 36.4; O2SAT 98
[2025-03-12] MEDS ORDERED: AMLO10TA80 PO (13:22)
[2025-03-12] MEDS ORDERED: LIP40 PO (13:22)
[2025-03-12] MEDS ORDERED: LANTUSUD SUBCUT (13:22)
[2025-03-12] MEDS ORDERED: INSLIS SUBCUT (13:22)
[2025-03-12] MEDS ORDERED: KEPP500 PO (13:22)
[2025-03-12] MEDS ORDERED: ASPI-1160 PO (13:22)
[2025-03-12 15:07] LABS: GAD-65 AUTOANTIBODY < 5.0 U/mL (0.0-5.0)
[2025-03-12 20:00] VITALS: BP 128/90; PULSE 92; RESP 20; TEMP 36.4; O2SAT 100
[2025-03-12] MEDS: QUETIAPINE FUMARATE 50MG TABLET PO SCH (21:19)
[2025-03-13 08:00] VITALS: BP 107/72; PULSE 62; RESP 20; TEMP 36.7; O2SAT 100
[2025-03-13 09:06] LABS: ASPARTATE AMINOTRANSFERASE 12 IU/L (<34); BILIRUBIN DIRECT 0.1 mg/dL (<=3.0)
[2025-03-13 09:07] LABS: BILIRUBIN TOTAL 0.3 mg/dL (0.1-1.0); PROTEIN TOTAL 6.6 g/dL (6.0-8.3)
[2025-03-13 12:50] LABS: VITAMIN B12 SERUM 750 pg/mL (211-911)
[2025-03-13 16:23] VITALS: BP 110/75; PULSE 65; RESP 20; TEMP 98.2
== END 2025-03-13 17:15 | disposition home health service (06) | DRG 45 ==
PROVIDERS: ADMIT Physical Medicine & Rehabilitation Spinal Cord Injury Medicine; ATTEND Internal Medicine
PROC: GZ56ZZZ Individual Psychotherapy, Supportive (ICD-10-PCS; principal; 2025-03-12)
DX: I63.9 Cerebral infarction, unspecified (principal); D68.62 Lupus anticoagulant syndrome; E11.649 Type 2 diabetes mellitus with hypoglycemia without coma; E72.20 Disorder of urea cycle metabolism, unspecified; I69.351 Hemiplegia and hemiparesis following cerebral infarction affecting right dominant side; E87.1 Hypo-osmolality and hyponatremia; I50.9 Heart failure, unspecified; I11.0 Hypertensive heart disease with heart failure; E11.65 Type 2 diabetes mellitus with hyperglycemia; D50.9 Iron deficiency anemia, unspecified; D72.819 Decreased white blood cell count, unspecified; I69.322 Dysarthria following cerebral infarction; G40.909 Epilepsy, unspecified, not intractable, without status epilepticus; L85.3 Xerosis cutis; R94.6 Abnormal results of thyroid function studies; E55.9 Vitamin D deficiency, unspecified; F17.200 Nicotine dependence, unspecified, uncomplicated; F80.9 Developmental disorder of speech and language, unspecified; I69.320 Aphasia following cerebral infarction; K86.1 Other chronic pancreatitis; R29.704 NIHSS score 4; Z79.02 Long term (current) use of antithrombotics/antiplatelets; Z79.82 Long term (current) use of aspirin; Z79.899 Other long term (current) drug therapy; Z88.0 Allergy status to penicillin; Z91.81 History of falling; E78.00 Pure hypercholesterolemia, unspecified; R29.6 Repeated falls; F39 Unspecified mood [affective] disorder; Z56.0 Unemployment, unspecified; R13.10 Dysphagia, unspecified
CPT/HCPCS: 36415; 76700; 80048; 80053; 80076; 82140; 82248; 82306; 82607; 82728; 82746; 82962; 83036; 83519; 83540; 83550; 84439; 84443; 84681; 85025; 86376; 92523; 92610; 97110; 97112; 97116; 97162; 97166; 97530; 97535; A4606; J1650; J1815

== ENCOUNTER 2025-06-21 10:21 | Emergency (ER) | payer MEDICAID ==
[~2025-06-21] VITALS: Ht 172.7 cm; Wt 60.0 kg
[~2025-06-21 10:21] MED LIST changes: -ATOR40TA70 MT; -CLOP-31 MT; -KEPP500 PO; +LEVE1000 MT; +LIP40 PO
[2025-06-21 10:22] VITALS: O2SAT 99
[2025-06-21] MEDS ORDERED: LEVETIRACETAM 500MG PREMIX 100 ML IV ONE ×2 (11:00)
[2025-06-21] MEDS: LEVETIRACETAM 500MG TABLET PO ONE (12:30)
[2025-06-21 13:10] LABS: BASOPHILS % 0.7 % (0.0-2.0); EOSINOPHILS % 0.3 % (0.0-5.0); HEMATOCRIT. 36.6 % (42.0-52.0); HEMOGLOBIN. 12.1 g/dL (14.0-18.0); LYMPHOCYTES % 19.6 % (20.0-50.0); MEAN PLATELET VOLUME 8.0 fl (7.4-10.4); MONOCYTES % 8.7 % (2.0-8.0); NEUTROPHILS % 70.7 % (40.0-76.0); PLATELET 269 x1000/uL (130-400); RED BLOOD CELL COUNT 4.62 mill/uL (4.7-6.1); RED CELL DISTRIBUTION WIDTH 13.5 % (11.6-14.6)
[2025-06-21 13:52] LABS: CREATININE 1.1 mg/dL (0.6-1.3)
[2025-06-21 13:53] LABS: UREA NITROGEN BLOOD 19 mg/dL (9-23)
[2025-06-21 13:54] LABS: ASPARTATE AMINOTRANSFERASE 26 IU/L (<34)
[2025-06-21 13:55] LABS: BILIRUBIN DIRECT 0.2 mg/dL (<=3.0); BILIRUBIN TOTAL 0.8 mg/dL (0.1-1.0); PROTEIN TOTAL 7.9 g/dL (6.0-8.3)
[2025-06-21] MEDS: INSULIN REGULAR (HUMULIN R) 1000UNITS/10ML VIAL SUBCUT ONE (14:22)
[2025-06-21] MEDS: LACTATED RINGERS 1,000 ML IV SCH (14:23)
[2025-06-21 15:49] VITALS: BP 135/72; PULSE 93; RESP 17; TEMP 36.9; O2SAT 99
== END 2025-06-21 15:52 | disposition home or self-care (01) ==
LOC: ER 10:35
DX: R56.9 Unspecified convulsions (principal); E11.65 Type 2 diabetes mellitus with hyperglycemia; E78.00 Pure hypercholesterolemia, unspecified; I25.10 Atherosclerotic heart disease of native coronary artery without angina pectoris; Z86.73 Personal history of transient ischemic attack (TIA), and cerebral infarction without residual deficits; Z88.0 Allergy status to penicillin; Z91.0110 Allergy to milk products, unspecified; Z91.018 Allergy to other foods; Z88.5 Allergy status to narcotic agent; Z79.4 Long term (current) use of insulin; Z79.82 Long term (current) use of aspirin; Z79.899 Other long term (current) drug therapy
CPT/HCPCS: 80076; 80048; 85025; 36415; 70450; 96360; 96372; 99285; J1815; Z7610